=== PATIENT | female | born 1970 | race Caucasian/White ===

== ENCOUNTER 2018-03-16 13:46 | Observation (INO) ==
[2018-03-16 14:10] LABS: Basophils % 0.7 % (0.1-2.0); Eosinophils # 0.1 K/mm3 (0.0-0.4); Eosinophils % 1.5 % (0.1-12.0); Hematocrit 35.7 % (37.0-47.0); Hemoglobin 11.3 g/dL (12.2-16.2); Lymphocytes # 2.2 K/mm3 (0.7-4.5); Lymphocytes % 32.6 % (10-50); Mean Corpuscular HGB Conc 31.5 g/dL (31.8-35.4); Mean Corpuscular Hemoglobin 26.4 pg (27.0-31.2); Mean Corpuscular Volume 83.9 fl (81-99); Mean Platelet Volume 6.6 fl (7.4-10.4); Monocytes # 0.4 K/mm3 (0.1-1.0); Monocytes % 5.2 % (1.7-9.3); Platelet Count 375 K/mm3 (142-424); Red Blood Count 4.25 M/mm3 (4.20-5.40); Red Cell Distribution Width 14.1 % (11.5-17.5); White Blood Count 6.7 K/mm3 (4.8-10.8)
[2018-03-16 14:26] LABS: Anion Gap 12.8 mEq/L (5-15); Blood Urea Nitrogen 12 mg/dL (7-18); Calcium 8.2 mg/dL (8.5-10.1); Carbon Dioxide 26 mmol/L (21.0-32.0); Chloride 104 mmol/L (98-107); Glucose 176 mg/dL (74-106); Sodium 139 mmol/L (136-145)
[2018-03-16 14:28] LABS: Potassium 3.8 mmoL/L (3.5-5.1)
--- NOTE | 2018-03-16 17:04 | Emergency Department Note ---
ED Disposition Clinical Impression: Chest pain, Troponin level elevated Disposition: Admitted as Observation Condition on Discharge: Good Time of Disposition: 15:00 - Critical Care Critical Care Time: No Attestation: On 03/16/18, the high probability of a clinically significant, sudden or life threatening deterioration of the following system(s) required my full and direct attention, intervention and personal management. The time I documented below is in addition to time spent performing reported procedures but includes the following listed in this critical care notation. Medical Decision Making - Medical Records Medical records reviewed: Yes: I reviewed the patient's medical records. - Sg Inquiry Pt receiving controlled substance: No Sg was queried for this patient: No Vital Signs: 03/16/18 13:48 03/16/18 14:17 03/16/18 14:18 Temperature 98.3 F Temperature Source Oral Pulse Rate Pulse Rate [Left Radial] 66 65 63 Respiratory Rate 18 Blood Pressure Blood Pressure [Left Arm] 133/65 Blood Pressure [Right Arm] 148/83 H 125/91 H Blood Pressure Mean [Left Arm] 87 Blood Pressure Mean [Right Arm] 104 102 Blood Pressure Source Blood Pressure Source [Left Arm] Blood Pressure Source [Right Arm] Manual Cuff/ Doppler Automatic Cuff Blood Pressure Position Blood Pressure Position [Left Arm] Sitting Blood Pressure Position [Right Arm] Sitting Sitting 02 Sat by Pulse Oximetry 96 Oxygen Delivery Method Room Air 03/16/18 14:30 03/16/18 15:09 03/16/18 16:51 Temperature Temperature Source Pulse Rate Pulse Rate [Left Radial] 72 63 73 Respiratory Rate 20 16 16 Blood Pressure Blood Pressure [Left Arm] 122/66 126/69 130/69 Blood Pressure [Right Arm] 122/66 Blood Pressure Mean [Left Arm] 84 88 89 Blood Pressure Mean [Right Arm] 84 Blood Pressure Source Blood Pressure Source [Left Arm] Automatic Cuff Automatic Cuff Automatic Cuff Blood Pressure Source [Right Arm] Automatic Cuff Blood Pressure Position Blood Pressure Position [Left Arm] Sitting Supine Supine Blood Pressure Position [Right Arm] 02 Sat by Pulse Oximetry 99 100 95 Oxygen Delivery Method Room Air Room Air Room Air 03/16/18 18:42 03/16/18 19:03 Temperature 98 F Temperature Source Oral Pulse Rate 68 Pulse Rate [Left Radial] 63 Respiratory Rate 16 Blood Pressure 119/61 Blood Pressure [Left Arm] 119/71 Blood Pressure [Right Arm] Blood Pressure Mean [Left Arm] 87 Blood Pressure Mean [Right Arm] Blood Pressure Source Automatic Cuff Blood Pressure Source [Left Arm] Automatic Cuff Blood Pressure Source [Right Arm] Blood Pressure Position Sitting Blood Pressure Position [Left Arm] Sitting Blood Pressure Position [Right Arm] 02 Sat by Pulse Oximetry 99 Oxygen Delivery Method Room Air - Lab Data Lab Results 03/16/18 13:50: WBC 6.7, RBC 4.25, Hgb 11.3 L, Hct 35.7 L, MCV 83.9, MCH 26.4 L, MCHC 31.5 L, RDW 14.1, Plt Count 375, MPV 6.6 L, Neut % (Auto) 60.0, Lymph % (Auto) 32.6, [place] % (Auto) 5.2, Eos % (Auto) 1.5, Baso % (Auto) 0.7, Neut # (Auto) 4.0, Lymph # (Auto) 2.2, [place] # (Auto) 0.4, Eos # (Auto) 0.1, Baso # (Auto) 0.0 03/16/18 13:50: Sodium 139, Potassium 3.8, Chloride 104, Carbon Dioxide 26, Anion Gap 12.8, BUN 12, Creatinine 0.96, Estimated Creat Clear 81, Estimated GFR 62, Est GFR ( Amer) 75, Glucose 176 H, Calcium 8.2 L, Troponin I < 0.02 03/16/18 16:20: Troponin I 0.33 H Result diagrams: 03/17/18 05:56 03/17/18 05:56 Orders (Tests/Meds): ED MEDICATIONS Discontinued Medications Generic Name Dose Route Start Last Admin Trade Name Uzair PRN Reason Stop Dose Admin Acetaminophen 650 mg 03/16/18 18:41 03/17/18 08:03 Acetaminophen 325mg Tab PO 04/15/18 18:40 650 mg Q4HP PRN Administration As Needed for Fever or Pain Alprazolam 0.5 mg 03/17/18 07:58 03/17/18 08:03 Xanax 0.5mg Tablet PO 03/17/18 07:59 0.5 mg ONCE ONE Administration Aspirin 81 mg 03/17/18 09:00 03/18/18 08:26 Aspirin 81mg Enteric Coated Tablet PO 04/16/18 08:59 81 mg DAILY LISA Administration Atorvastatin Calcium 40 mg 03/16/18 21:00 03/17/18 20:00 Lipitor 40mg Tablet PO 04/15/18 20:59 40 mg HS LISA Administration Diphenhydramine HCl 50 mg 03/17/18 08:31 03/17/18 10:19 Benadryl 50mg/1ml Vial IV 03/17/18 08:32 50 mg ONCE ONE Administration Fentanyl Citrate 25 mcg 03/17/18 08:31 Fentanyl 100mcg/2ml Vial IV 03/18/18 08:33 Q3MINP PRN Moderate to Severe Pain Fentanyl Citrate 50 mcg 03/17/18 08:31 03/17/18 10:35 Fentanyl 100mcg/2ml Vial IV 03/18/18 08:33 75 mcg Q3MINP PRN Administration Moderate to Severe Pain Flumazenil 0.2 mg 03/17/18 08:31 Romazicon 0.1mg/Ml 5ml Vial IV 03/17/18 23:00 NEEDED PRN Sedation Heparin Sodium (Porcine) 10,000 unit 03/17/18 08:31 03/17/18 10:19 Heparin 1,000 Units/Ml 10ml Vial (Scalehouse Attendant) IV 03/17/18 12:32 5,000 unit NEEDED PRN Administration Emergency Box Butt Maker Heparin Sodium/Sodium Chloride 3,000 unit 03/17/18 08:31 03/17/18 10:21 Heparin 1000 Units/500ml Ns (Scalehouse Attendant) IV 03/17/18 08:32 3,000 unit ONCE ONE Administration Sodium Chloride 1,000 mls @ 50 mls/hr 03/16/18 18:45 03/17/18 08:11 Sod Chlor 0.9% 1000ml Bag IV 04/15/18 18:44 Not Given .Q20H LISA Sodium Chloride 1,000 mls @ 25 mls/hr 03/17/18 08:45 03/17/18 10:22 Sod Chlor 0.9% 1000ml Bag IV 03/18/18 08:32 25 mls/hr .Q25H LISA Administration Iopamidol 75 ml 03/16/18 14:59 03/16/18 15:02 [id number]; 75ml Vial IV 03/16/18 15:00 75 ml ONCE ONE Administration Protocol Iopamidol 60 ml 03/17/18 11:31 03/17/18 11:32 [id number]; 100ml Vial IV 03/17/18 11:32 60 ml ONCE ONE Administration Protocol Lidocaine HCl 20 ml 03/17/18 08:31 03/17/18 10:20 Lidocaine 1% 20ml Mdv IJ 03/17/18 08:32 5 ml ONCE ONE Administration Lisinopril 2.5 mg 03/17/18 12:00 03/18/18 08:26 Zestril 2.5mg Tablet PO 04/16/18 11:59 2.5 mg DAILY LISA Administration Metoprolol Succinate 25 mg 03/17/18 17:00 03/18/18 08:26 Toprol Xl 25mg Tablet PO 04/16/18 16:59 25 mg DAILY LISA Administration Metoprolol Tartrate 25 mg 03/16/18 17:09 03/16/18 17:22 Lopressor 50mg Tablet PO 03/16/18 17:10 25 mg ONCE ONE Administration Midazolam HCl 1 mg 03/17/18 08:31 03/17/18 10:35 Midazolam 2mg/2ml Vial IV 03/18/18 08:32 4 mg Q3MINP PRN Administration Sedation Midazolam HCl 1 mg 03/17/18 08:31 Midazolam 1mg/Ml 5ml Vial IV 03/18/18 08:32 Q3MINP PRN Sedation Morphine Sulfate 4 mg 03/16/18 14:03 03/16/18 14:17 Morphine 4mg/Ml Syringe IV 03/16/18 14:04 2 mg ONCE ONE Administration Morphine Sulfate 4 mg 03/16/18 18:41 Morphine 2mg/Ml Syringe IV 04/15/18 18:40 Q4HP PRN Severe Pain Morphine Sulfate 4 mg 03/17/18 07:56 Morphine 4mg/Ml Syringe IV 04/15/18 18:40 Q4HP PRN Severe Pain Naloxone HCl 0.4 mg 03/17/18 08:31 Narcan 0.4mg/Ml Vial IV 03/18/18 08:32 Q5MINP PRN Decreased respirations Nitroglycerin 0.4 mg 03/16/18 14:00 03/16/18 14:17 Nitroglycerin 0.4mg/Dose [place] 4.9gm TL 03/16/18 14:01 0.4 mg ONCE ONE Administration Nitroglycerin 1 gm 03/16/18 17:10 03/16/18 17:22 Nitroglycerin 1 Inch Oint Udp TD 03/16/18 17:11 1 gm ONCE ONE Administration Nitroglycerin 1 gm 03/16/18 19:30 03/18/18 08:27 Nitroglycerin 1 Inch Oint Udp TD 04/15/18 19:29 Not Given Q6H LISA Nitroglycerin 800 mcg 03/17/18 08:31 03/17/18 10:20 Nitroglycerin 800mcg/8ml Syr (Scalehouse Attendant) IV 03/18/18 08:32 800 mcg NEEDED PRN Administration Emergency Box Butt Maker Ondansetron HCl 4 mg 03/16/18 14:16 03/16/18 14:17 Zofran 4mg/2ml Vial IV 03/16/18 14:17 4 mg ONCE ONE Administration Sodium Chloride 10 ml 03/16/18 13:56 03/17/18 20:00 Saline Flush 10ml Syringe IV 04/15/18 13:55 10 ml NEEDED PRN Administration Maintain IV Site Sodium Chloride 10 ml 03/16/18 14:59 03/16/18 15:02 Rad-Saline Flush 10ml Syringe IV 03/16/18 15:00 10 ml ONCE ONE Administration Sodium Chloride 40 ml 03/16/18 14:59 03/16/18 15:02 Rad-Ns 50ml Vial IV 03/16/18 15:00 40 ml ONCE ONE Administration Sodium Chloride 10 ml 03/17/18 08:31 Saline Flush 10ml Syringe IV 04/16/18 08:30 NEEDED PRN Maintain IV Site Sodium Chloride 10 ml 03/17/18 08:31 Saline Flush 10ml Syringe IV 04/16/18 08:30 NEEDED PRN Maintain IV Site Ticagrelor 180 mg 03/16/18 17:00 03/16/18 17:09 Brilinta 90mg Tablet PO 03/16/18 17:01 180 mg ONCE ONE Administration Ticagrelor 90 mg 03/17/18 09:00 03/18/18 08:26 Brilinta 90mg Tablet PO 04/16/18 08:59 90 mg BID LISA Administration Verapamil HCl 2.5 mg 03/17/18 08:31 03/17/18 10:19 Verapamil 2.5mg/Ml 2ml Vial IV 03/17/18 08:32 2.5 mg ONCE ONE Administration ORDERS Category Date Time Status Consult to Cardiology [CONS] Routine Cons 03/16/18 18:45 Active 12-lead EKG Request [ECG Request by /Cholo] Stat Y 03/16/18 17:00 Stop Req 12-lead EKG Request [ECG Request by /Cholo] Stat Y 03/16/18 18:07 Stop Req Chest Pain HPI - General Chief Complaint: Chest Pain Stated Complaint: chest pain Time Seen by Provider: 03/16/18 13:58 Mode of Arrival: Wheelchair Limitations: No Limitations Description of Symptoms (Recalled from ER Triage Doc. 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 cpta none - History of Present Illness HPI narrative: Chest pain, acute, right chest predominantly. Severe, no back pain. MD complaint: chest pain Onset (ago): minute(s) Duration: constant Activity at onset: during rest Pain location: substernal, right chest Severity: moderate Quality: aching Pain radiation: LUE - Related Data Home Medications Medication Instructions Recorded Confirmed RX: Ascorbic Acid [Vitamin C] 500 mg PO DAILY 03/16/18 03/22/18 RX: Cyanocobalamin (Vitamin B-12) 2,500 mcg PO DAILY 03/16/18 03/22/18 [Vitamin B12 2.5mg Tab] RX: Multivitamin [Multivitamins] 1 each PO DAILY 03/16/18 03/22/18 Previous Rx's Medication Instructions Recorded Aspirin [Aspirin 81mg EC Tab] 81 mg PO DAILY #30 tablet. 03/17/18 Clopidogrel Bisulfate [Clopidogrel 75 mg PO DAILY #30 tab 03/18/18 75mg Tab] RX: Atorvastatin Calcium [Lipitor 40 mg PO HS #30 tab 03/18/18 40mg Tablet] RX: Metoprolol Succinate [Toprol 25 mg PO DAILY #30 tab.er.24h 03/18/18 XL 25mg tablet] lisinopril 2.5 mg tablet 2.5 mg PO BID #60 tab 03/22/18 Allergies Allergy/AdvReac Type Severity Reaction Status Date / Time No Known Allergies Allergy Verified 03/22/18 11:45 [facility] History - Hepatitis A Screen Drug use history?: No High risk sexual behaviors?: No History of sexually transmitted infection?: No Currently employed?: No Childcare worker?: No Do you have indoor plumbing?: Yes Do you have electricity?: Yes Attestation statement:: This patient has been screened for Hepatitis A risk factors. I have reviewed the patient's past medical history: Yes Other Medical History: Reports: Anemia Other Surgeries: Yes: No Previous Surgery - Social History Smoking Status: Never smoker Alcohol Intake: never Alcohol Intake Frequency:: holidays/special occasions only Occupational Status: employed Housing: house Household Members: family - Psychiatric History Expresses thoughts of harming self/others: None Suicide Plan Description: No Plan Family Hx:: Cancer, Hypertension, Diabetes ROS Obtained: Yes Systems reviewed as appropriate & no additional complaints - Constitutional Constitutional: Reports system reviewed and no additional complaints, except as docu, Denies fever(s), Denies malaise - Eyes Eyes: Reports system reviewed and no additional complaints, except as docu, Denies blurry vision - ENT Ears, Nose, Mouth, and Throat: Reports system reviewed and no additional complaints, except as docu, Denies throat swelling - Cardiovascular Cardiovascular: Reports system reviewed and no additional complaints, except as docu, Reports chest pain, Reports chest pain at rest, Reports dyspnea, Denies leg edema, Denies palpitations - Respiratory Respiratory: Yes system reviewed and no additional complaints, except as docu, No change in phlegm color, No chest congestion, No cough, No non-productive cough, No pain with cough - Gastrointestinal Gastrointestingal: Reports: system reviewed and no additional complaints, except as docu. Denies: coffee ground emesis - Genitourinary Male Genitourinary: Reports system reviewed and no additional complaints, except as docu - Musculoskeletal Musculoskeletal: Denies numbness, Denies stiffness, Denies tingling - Integumentary/Breasts Skin/Breast: Reports system reviewed and no additional complaints, except as docu, Denies rash - Neurologic Neurologic: Reports system reviewed and no additional complaints, except as docu, Denies tingling/numbness/burning sensations, Denies seizure-like activity, Denies sensory deficit - Hematologic/Lymphatic Henatologic/Lymphatic: Denies easy bleeding, Denies easy bruising Physical Exam - General General appearance: alert - ENT ENT exam: Present: normal exam, normal oropharynx - Neck Neck exam: Present: normal inspection - Chest Chest inspection: Present: normal inspection - Respiratory Respiratory exam: Present: normal lung sounds bilaterally - Cardiovascular Cardiovascular exam: Present: regular rate - Abdominal Exam Abdominal exam: Present: soft, normal bowel sounds. Absent: distention, tenderness, guarding - Extremities Exam Extremities exam: Present: normal inspection, full ROM, normal capillary refill. Absent: calf tenderness - Neurological Exam Neurological exam: Present: alert - Psychiatric Psychiatric exam: Present: normal affect, normal mood - Skin Skin exam: Present: warm, dry, intact, normal color - Lymphatic Lymphatic Findings: no adenopathy
--- NOTE | 2018-03-16 19:21 | History & Physical Report ---
*Admission Date: 03/16/18 *Chief complaint: Chest pressure *History of present illness: 47-year-old female without any significant medical history was in her normal state of health at work today when she experienced sudden onset of squeezing chest tightness that radiated into both shoulders and down the arms as well as through the chest and into the back. 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 These were apparently normal but when her chest pressure and tightness would not relieve she presented to the emergency department. In the emergency department workup was begun for chest pain. Initial EKG and troponin was negative. Patient was given Zofran for nausea as well as morphine which did relieve some of her chest discomfort. Ultimately chest discomfort resolved when she was given metoprolol. By that point patient had had some chest tightness of varying intensity for approximately 4 hours. Patient was observed in the emergency department and a second troponin came back abnormal (0.33). EKGs remained unremarkable for infarct or ischemia. Patient will be admitted for non-STEMI. Cardiac risk factors include a family history on her mother side of the family of heart disease. Her maternal grandmother had an VT at age 53 and her mother required coronary stenting in her early 50s. Her mother also has hyper homocystinemia. Patient tells me she has had her homocystine levels checked and they have been normal. Her last cholesterol test was 1 year ago and was "borderline". Patient is a non-smoker [facility] History I have reviewed the patient's past medical history: Yes Other Medical History: Reports: Anemia Other Surgeries: Yes: No Previous Surgery - *Social History Smoking Status: Never smoker Alcohol Intake: never Alcohol Intake Frequency:: holidays/special occasions only Occupational Status: employed Housing: house Household Members: family - Psychiatric History Expresses thoughts of harming self/others: None Suicide Plan Description: No Plan *Family Hx:: Cancer, Hypertension, Diabetes Review of Systems - Review of Systems Review of systems:: other (See HPI) - *Neurologic Denies numbness, Denies tingling/numbness/burning sensations, Denies seizure- like activity, Denies sensory deficit, Denies tingling Meds Home Medications Medication Instructions Recorded Confirmed Type No Known Home Medications 01/29/18 03/16/18 History Allergies Allergy/AdvReac Type Severity Reaction Status Date / Time No Known Allergies Allergy Unverified 01/29/18 11:38 Exam Vital signs and Labs for Last 24 Hours: Temp Pulse Resp BP Pulse Ox 98 F 68 16 119/61 99 03/16/18 19:03 03/16/18 19:03 03/16/18 19:03 03/16/18 19:03 03/16/18 18:42 Laboratory Results - last 24 hr 03/16/18 13:50: WBC 6.7, RBC 4.25, Hgb 11.3 L, Hct 35.7 L, MCV 83.9, MCH 26.4 L, MCHC 31.5 L, RDW 14.1, Plt Count 375, MPV 6.6 L, Neut % (Auto) 60.0, Lymph % (Auto) 32.6, [place] % (Auto) 5.2, Eos % (Auto) 1.5, Baso % (Auto) 0.7, Neut # (Auto) 4.0, Lymph # (Auto) 2.2, [place] # (Auto) 0.4, Eos # (Auto) 0.1, Baso # (Auto) 0.0 03/16/18 13:50: Sodium 139, Potassium 3.8, Chloride 104, Carbon Dioxide 26, Anion Gap 12.8, BUN 12, Creatinine 0.96, Estimated Creat Clear 81, Estimated GFR 62, Est GFR ( Amer) 75, Glucose 176 H, Calcium 8.2 L, Troponin I < 0.02 03/16/18 16:20: Troponin I 0.33 H I & O for Last 24 hours: Intake & Output 03/14/18 03/15/18 03/16/18 03/17/18 11:59 11:59 11:59 11:59 Weight 160 lb Narrative: Patient is resting comfortably in bed. She is in no distress. She does not appear diaphoretic. HEENT exam is normal. Neck has no jugular venous distention or carotid bruits. Lungs are clear to auscultation. Heart has a regular rate and rhythm. Abdomen is soft, nontender, nondistended. Extremities are warm to the touch. She has no pedal edema. Neurologically there is no deficit Assessment and Plan (1) Non-ST elevation [place] (NSTEMI) Current visit: Yes Status: Acute Category: Medical Code(s): I21.4 - Non-ST elevation (NSTEMI) myocardial infarction - Assessment and plan all Dx Assessment and Plan for all problems:: Patient has been admitted for observation to a telemetry bed. She has been given aspirin and a loading dose of Brilinta. Patient will be given a statin. Lipid panel will be checked in the morning. A third troponin has been ordered for this evening. Cardiology has been consulted and Dr. Ortega has already been made aware of this patient by the ER
[2018-03-17 06:15] LABS: Basophils % 0.6 % (0.1-2.0); Eosinophils # 0.1 K/mm3 (0.0-0.4); Hematocrit 36.1 % (37.0-47.0); Hemoglobin 11.6 g/dL (12.2-16.2); Lymphocytes # 1.6 K/mm3 (0.7-4.5); Lymphocytes % 21.6 % (10-50); Mean Corpuscular Hemoglobin 26.1 pg (27.0-31.2); Mean Corpuscular Volume 81.6 fl (81-99); Mean Platelet Volume 6.5 fl (7.4-10.4); Monocytes # 0.4 K/mm3 (0.1-1.0); Monocytes % 5.5 % (1.7-9.3); Neutrophils # 5.5 K/mm3 (1.8-7.8); Neutrophils % 71.4 % (37.0-80.0); Platelet Count 348 K/mm3 (142-424); Red Blood Count 4.42 M/mm3 (4.20-5.40); White Blood Count 7.6 K/mm3 (4.8-10.8)
[2018-03-17 06:22] LABS: Anion Gap 13.8 mEq/L (5-15); Calcium 8.3 mg/dL (8.5-10.1); Potassium 3.8 mmoL/L (3.5-5.1)
[2018-03-17 06:25] LABS: Chol/HDL Ratio 2.1 (1-3.5)
--- NOTE | 2018-03-17 07:05 | Progress Note ---
Internal Medicine - PN: Subj *Date: 03/17/18 *Time: 07:03 Interval history: Patient has no complaints this morning. She still has some left-sided periscapular pain which has not ceased since onset of symptoms yesterday. All other symptoms of chest pressure that radiated into the shoulder have resolved. She denies shortness of breath. Her troponin did rise even more on a third set checked yesterday evening. Exam Vital signs and Labs for Last 24 Hours: Temp Pulse Resp BP Pulse Ox 98.4 F 62 18 114/57 L 97 03/17/18 04:00 03/17/18 04:00 03/17/18 04:00 03/17/18 04:00 03/17/18 04:00 Laboratory Results - last 24 hr 03/16/18 13:50: WBC 6.7, RBC 4.25, Hgb 11.3 L, Hct 35.7 L, MCV 83.9, MCH 26.4 L, MCHC 31.5 L, RDW 14.1, Plt Count 375, MPV 6.6 L, Neut % (Auto) 60.0, Lymph % (Auto) 32.6, [place] % (Auto) 5.2, Eos % (Auto) 1.5, Baso % (Auto) 0.7, Neut # (Auto) 4.0, Lymph # (Auto) 2.2, [place] # (Auto) 0.4, Eos # (Auto) 0.1, Baso # (Auto) 0.0 03/16/18 13:50: Sodium 139, Potassium 3.8, Chloride 104, Carbon Dioxide 26, Anion Gap 12.8, BUN 12, Creatinine 0.96, Estimated Creat Clear 81, Estimated GFR 62, Est GFR ( Amer) 75, Glucose 176 H, Calcium 8.2 L, Troponin I < 0.02 03/16/18 16:20: Troponin I 0.33 H 03/16/18 21:18: Troponin I 4.98 H 03/17/18 05:56: Triglycerides 45, Cholesterol 162, LDL Cholesterol 75, VLDL Cholesterol 9, HDL Cholesterol 78, Cholesterol/HDL Ratio 2.1 03/17/18 05:56: WBC 7.6, RBC 4.42, Hgb 11.6 L, Hct 36.1 L, MCV 81.6, MCH 26.1 L, MCHC 32.0, RDW 14.0, Plt Count 348, MPV 6.5 L, Neut % (Auto) 71.4, Lymph % (Auto) 21.6, [place] % (Auto) 5.5, Eos % (Auto) 1.0, Baso % (Auto) 0.6, Neut # (Auto) 5.5, Lymph # (Auto) 1.6, [place] # (Auto) 0.4, Eos # (Auto) 0.1, Baso # (Auto) 0.0 03/17/18 05:56: Sodium 139, Potassium 3.8, Chloride 103, Carbon Dioxide 26, Anion Gap 13.8, BUN 11, Creatinine 0.87, Estimated Creat Clear 111, Estimated GFR 69, Est GFR ( Amer) 84, Glucose 103 D, Calcium 8.3 L I & O for Last 24 hours: Intake & Output 03/14/18 03/15/18 03/16/18 03/17/18 11:59 11:59 11:59 11:59 Intake Total Balance Weight 197 lb 5 oz - Constitutional no acute distress - *Routine Respiratory Exam Present: CTA bilaterally - *Routine Cardiovascular Exam Present: RRR, Normal S1, Normal S2 Assessment and Plan (1) Non-ST elevation [place] (NSTEMI) Current visit: Yes Status: Acute Category: Medical Code(s): I21.4 - Non-ST elevation (NSTEMI) myocardial infarction - Assessment and plan all Dx Assessment and Plan for all problems:: 1. Echocardiogram today 2. Cardiology consult for heart catheterization
--- NOTE | 2018-03-17 07:06 | Discharge Summary ---
General - General Admission date:: 03/16/18 Discharge date: 03/18/18 HPI HPI: 47-year-old female without any significant medical history was in her normal state of health at work today when she experienced sudden onset of squeezing chest tightness that radiated into both shoulders and down the arms as well as through the chest and into the back. 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 These were apparently normal but when her chest pressure and tightness would not relieve she presented to the emergency department. In the emergency department workup was begun for chest pain. Initial EKG and troponin was negative. Patient was given Zofran for nausea as well as morphine which did relieve some of her chest discomfort. Ultimately chest discomfort resolved when she was given metoprolol. By that point patient had had some chest tightness of varying intensity for approximately 4 hours. Patient was observed in the emergency department and a second troponin came back abnormal (0.33). EKGs remained unremarkable for infarct or ischemia. Patient will be admitted for non-STEMI. Cardiac risk factors include a family history on her mother side of the family of heart disease. Her maternal grandmother had an IL at age 53 and her mother required coronary stenting in her early 50s. Her mother also has hyper homocystinemia. Patient tells me she has had her homocystine levels checked and they have been normal. Her last cholesterol test was 1 year ago and was "borderline". Patient is a non-smoker Hospital Course Hospital Course: Patient ruled in for IL. Cardiology was consulted. On 03/17 patient underwent LHC with findings of occluded mid PDA. EF was 40% via BYNUM and 40-50% on echo. Patient will need ASA,Plavix, atorvastatin, metroprolol er, lisinopril. Patient was monitored post-cath and had no arrhythmias. She was discharged to home on 03/18. follow up with Dr. Ortega on 03/22/18. Objective Vital signs: Temp Pulse Resp BP Pulse Ox 98.4 F 62 18 114/57 L 97 03/17/18 04:00 03/17/18 04:00 03/17/18 04:00 03/17/18 04:00 03/17/18 04:00 Results Labs on day of discharge: Labs from last 24 hours 03/17/18 03/17/18 03/17/18 05:56 05:56 05:56 WBC 7.6 RBC 4.42 Hgb 11.6 L Hct 36.1 L MCV 81.6 MCH 26.1 L MCHC 32.0 RDW 14.0 Plt Count 348 MPV 6.5 L Neut % (Auto) 71.4 Lymph % (Auto) 21.6 [place] % (Auto) 5.5 Eos % (Auto) 1.0 Baso % (Auto) 0.6 Neut # (Auto) 5.5 Lymph # (Auto) 1.6 [place] # (Auto) 0.4 Eos # (Auto) 0.1 Baso # (Auto) 0.0 Sodium 139 Potassium 3.8 Chloride 103 Carbon Dioxide 26 Anion Gap 13.8 BUN 11 Creatinine 0.87 Estimated Creat Clear 111 Estimated GFR 69 Est GFR ( Amer) 84 Glucose 103 D Calcium 8.3 L Troponin I Triglycerides 45 Cholesterol 162 LDL Cholesterol 75 VLDL Cholesterol 9 HDL Cholesterol 78 Cholesterol/HDL Ratio 2.1 03/16/18 03/16/18 03/16/18 21:18 16:20 13:50 WBC RBC Hgb Hct MCV MCH MCHC RDW Plt Count MPV Neut % (Auto) Lymph % (Auto) [place] % (Auto) Eos % (Auto) Baso % (Auto) Neut # (Auto) Lymph # (Auto) [place] # (Auto) Eos # (Auto) Baso # (Auto) Sodium 139 Potassium 3.8 Chloride 104 Carbon Dioxide 26 Anion Gap 12.8 BUN 12 Creatinine 0.96 Estimated Creat Clear 81 Estimated GFR 62 Est GFR ( Amer) 75 Glucose 176 H Calcium 8.2 L Troponin I 4.98 H 0.33 H < 0.02 Triglycerides Cholesterol LDL Cholesterol VLDL Cholesterol HDL Cholesterol Cholesterol/HDL Ratio 03/16/18 13:50 WBC 6.7 RBC 4.25 Hgb 11.3 L Hct 35.7 L MCV 83.9 MCH 26.4 L MCHC 31.5 L RDW 14.1 Plt Count 375 MPV 6.6 L Neut % (Auto) 60.0 Lymph % (Auto) 32.6 [place] % (Auto) 5.2 Eos % (Auto) 1.5 Baso % (Auto) 0.7 Neut # (Auto) 4.0 Lymph # (Auto) 2.2 [place] # (Auto) 0.4 Eos # (Auto) 0.1 Baso # (Auto) 0.0 Sodium Potassium Chloride Carbon Dioxide Anion Gap BUN Creatinine Estimated Creat Clear Estimated GFR Est GFR ( Amer) Glucose Calcium Troponin I Triglycerides Cholesterol LDL Cholesterol VLDL Cholesterol HDL Cholesterol Cholesterol/HDL Ratio DS: Diagnosis - Discharge Diagnosis (1) Non-ST elevation IL (NSTEMI) Status: Acute Discharge Plan - Patient Discharge Instructions ACTIVITY: Continue current activity DIET: continue same diet - Follow up Plan Follow up with: Magno Ortega MD [Staff Physician] - Disposition: Home, Self-Long-Term Medications: Home Medications Medication Instructions Recorded Confirmed Type Ascorbic Acid [Vitamin C] 500 mg PO DAILY 03/16/18 03/16/18 History Cyanocobalamin (Vitamin B-12) 2,500 mcg PO DAILY 03/16/18 03/16/18 History [Vitamin B12 2.5mg Tab] Multivitamin [Multivitamins] 1 each PO DAILY 03/16/18 03/16/18 History Aspirin [Aspirin 81mg EC Tab] 81 mg PO DAILY #30 tablet. 03/17/18 Rx Atorvastatin Calcium [Lipitor 40mg 40 mg PO HS #30 tablet 03/18/18 Rx Tablet] Clopidogrel Bisulfate [Clopidogrel 75 mg PO DAILY #30 tab 03/18/18 Rx 75mg Tab] Lisinopril [Zestril 2.5mg Tablet] 2.5 mg PO DAILY #30 tablet 03/18/18 Rx Metoprolol Succinate [Toprol XL 25 mg PO DAILY #30 tab.er.24h 03/18/18 Rx 25mg tablet] Prescriptions/Medication Reconciliation: New Aspirin [Aspirin 81mg EC Tab] 81 mg PO DAILY #30 tablet. Atorvastatin Calcium [Lipitor 40mg Tablet] 40 mg PO HS #30 tablet Clopidogrel Bisulfate [Clopidogrel 75mg Tab] 75 mg PO DAILY #30 tab Metoprolol Succinate [Toprol XL 25mg tablet] 25 mg PO DAILY #30 tab.er.24h Lisinopril [Zestril 2.5mg Tablet] 2.5 mg PO DAILY #30 tablet No Action Cyanocobalamin (Vitamin B-12) [Vitamin B12 2.5mg Tab] 2,500 mcg PO DAILY Ascorbic Acid [Vitamin C] 500 mg PO DAILY Multivitamin [Multivitamins] 1 each PO DAILY
--- NOTE | 2018-03-17 07:37 | Consult Report ---
History of Present Illness Consult date: 03/17/18 Requesting physician: Ethan Funk Consult reason: chest pain Chief complaint: Chest pain Additional Medical History:: 1. Chronic anemia, no previous workup at patient's request. A. Treated with home vitamin therapy. 2. History of remote gastric bypass with >200 lb wt loss A. Post-op gastric ulcer treated with carafate 3. Mother with history of CAD and homocystiene (+) with IVC filter and coumadin therapy A. Pt and siblings tested. Pt is normal. History of present illness: 47-year-old female without any significant medical history was in her normal state of health at work today when she experienced sudden onset of squeezing chest tightness that radiated into both shoulders and down the arms as well as through the chest and into the back. 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 These were apparently normal but when her chest pressure and tightness would not relieve she presented to the emergency department. In the emergency department workup was begun for chest pain. Initial EKG and troponin was negative. Patient was given Zofran for nausea as well as morphine which did relieve some of her chest discomfort. Ultimately chest discomfort resolved when she was given metoprolol. By that point patient had had some chest tightness of varying intensity for approximately 4 hours. Patient was observed in the emergency department and a second troponin came back abnormal (0.33). EKGs remained unremarkable for infarct or ischemia. Patient will be admitted for non-STEMI. Cardiac risk factors include a family history on her mother side of the family of heart disease. Her maternal grandmother had an ND at age 53 and her mother required coronary stenting in her early 50s. Her mother also has hyper homocy stinemia. Patient tells me she has had her homocystine levels checked and they have been normal. Her last cholesterol test was 1 year ago and was "borderline". Patient is a non-smoker The above per Dr. Funk In hind sight patient relates the same back pain with activity off and on for about a month that would resolve with rest and only last for about 10 min. EKG is sinus with persistent questionable early repolarization changes inferiorly. Troponin up to 4.9 last night. Clinically symptoms have resolved. [facility] History Medical History: Denies:: Cancer, Diabetes Mellitus Type 1, Diabetes Mellitus Type 2, MRSA Other Medical History: Reports: Anemia Other Surgeries: Yes: No Previous Surgery, Bariatric Surgery, Cholecystectomy, Tubal Ligation, Other Amputation: No Fractures: No - *Social History Educational Level: Completed College Smoking Status: Never smoker Alcohol Intake: never Alcohol Intake Frequency:: holidays/special occasions only Occupational Status: employed Housing: house Household Members: family - Psychiatric History Expresses thoughts of harming self/others: None Suicide Plan Description: No Plan *Family Hx:: Cancer, Hypertension, Diabetes Meds Home Medications Medication Instructions Recorded Confirmed Type Ascorbic Acid [Vitamin C] 500 mg PO DAILY 03/16/18 03/16/18 History Cyanocobalamin (Vitamin B-12) 2,500 mcg PO DAILY 03/16/18 03/16/18 History [Vitamin B12 2.5mg Tab] Multivitamin [Multivitamins] 1 each PO DAILY 03/16/18 03/16/18 History Aspirin [Aspirin 81mg EC Tab] 81 mg PO DAILY #30 tablet. 03/17/18 Rx Allergies Allergy/AdvReac Type Severity Reaction Status Date / Time No Known Allergies Allergy Unverified 01/29/18 11:38 Review of Systems - *Cardiovascular Reports chest pain, Denies shortness of breath with activity - *Respiratory Denies shortness of breath - *Gastrointestinal Denies abdominal pain - *Genitourinary Denies blood in urine - *Musculoskeletal Reports back pain - *Neurologic Denies numbness, Denies tingling/numbness/burning sensations, Denies seizure- like activity, Denies sensory deficit, Denies tingling Exam Vital signs and Labs for Last 24 Hours: Temp Pulse Resp BP Pulse Ox 98.4 F 62 18 114/57 L 97 03/17/18 04:00 03/17/18 04:00 03/17/18 04:00 03/17/18 04:00 03/17/18 04:00 Laboratory Results - last 24 hr 03/16/18 13:50: WBC 6.7, RBC 4.25, Hgb 11.3 L, Hct 35.7 L, MCV 83.9, MCH 26.4 L, MCHC 31.5 L, RDW 14.1, Plt Count 375, MPV 6.6 L, Neut % (Auto) 60.0, Lymph % (Auto) 32.6, [place] % (Auto) 5.2, Eos % (Auto) 1.5, Baso % (Auto) 0.7, Neut # (Auto) 4.0, Lymph # (Auto) 2.2, [place] # (Auto) 0.4, Eos # (Auto) 0.1, Baso # (Auto) 0.0 03/16/18 13:50: Sodium 139, Potassium 3.8, Chloride 104, Carbon Dioxide 26, Anion Gap 12.8, BUN 12, Creatinine 0.96, Estimated Creat Clear 81, Estimated GFR 62, Est GFR ( Amer) 75, Glucose 176 H, Calcium 8.2 L, Troponin I < 0.02 03/16/18 16:20: Troponin I 0.33 H 03/16/18 21:18: Troponin I 4.98 H 03/17/18 05:56: Triglycerides 45, Cholesterol 162, LDL Cholesterol 75, VLDL Cholesterol 9, HDL Cholesterol 78, Cholesterol/HDL Ratio 2.1 03/17/18 05:56: WBC 7.6, RBC 4.42, Hgb 11.6 L, Hct 36.1 L, MCV 81.6, MCH 26.1 L, MCHC 32.0, RDW 14.0, Plt Count 348, MPV 6.5 L, Neut % (Auto) 71.4, Lymph % (Auto) 21.6, [place] % (Auto) 5.5, Eos % (Auto) 1.0, Baso % (Auto) 0.6, Neut # (Auto) 5.5, Lymph # (Auto) 1.6, [place] # (Auto) 0.4, Eos # (Auto) 0.1, Baso # (Auto) 0.0 03/17/18 05:56: Sodium 139, Potassium 3.8, Chloride 103, Carbon Dioxide 26, Anion Gap 13.8, BUN 11, Creatinine 0.87, Estimated Creat Clear 111, Estimated GFR 69, Est GFR ( Amer) 84, Glucose 103 D, Calcium 8.3 L I & O for Last 24 hours: Intake & Output 03/14/18 03/15/18 03/16/18 03/17/18 11:59 11:59 11:59 11:59 Intake Total Balance Weight 197 lb 5 oz - *Routine Neck Exam Present: supple. Absent: JVD, carotid bruit - *Routine Respiratory Exam Present: CTA bilaterally. Absent: accessory muscle use, rales, rhonchi, wheezes - *Routine Cardiovascular Exam Present: RRR. Absent: murmur, gallop, rubs - *Routine Abdominal Exam Present: soft. Absent: tenderness, distended, guarding - *Routine Extremities Exam Absent: edema, calf tenderness - *Routine Neurological Exam Present: alert, oriented X3, moving all extremities Assessment and Plan (1) Non-ST elevation ND (NSTEMI) Current visit: Yes Status: Acute Category: Medical Code(s): I21.4 - Non-ST elevation (NSTEMI) myocardial infarction (2) Anemia Current visit: Yes Status: Acute Category: Medical Code(s): D64.9 - Anemia, unspecified (3) Chest pain Current visit: Yes Status: Acute Category: Medical Code(s): R07.9 - Chest pain, unspecified (4) Nonsustained ventricular tachycardia Current visit: Yes Status: Acute Category: Medical Code(s): I47.2 - Ventricular tachycardia - Assessment and plan all Dx Assessment and Plan for all problems:: 1. Cardiac cath today for NSTEMI 2. Echo ordered with preliminary results showing preserved EF with apical thinning. 3. Start low dose JADON and beta trixie in setting of NSTEMI and V. Tach. Continue statin, ASA and brilinta. 4. Further recommendations to follow.
--- NOTE | 2018-03-17 07:47 | Pharmacy Consult Notes ---
[facility] Pharmacy VTE Monitoring - Patient Demographics Admission date: 03/16/18 Report Date: 03/17/18 Time: 07:47 Allergies/Adverse Reactions: Patient Allergies No Known Allergies Allergy (Unverified 01/29/18 11:38) Height: 1.71 m Weight: 89.499 kg Patient Problems: Current Active Problems Chest pain (Acute) Troponin level elevated (Acute) Non-ST elevation MT (NSTEMI) (Acute) - VTE Risk Labs: VTE Related Lab Results Hgb 11.6 g/dL (12.2-16.2) L 03/17/18 05:56 Hct 36.1 % (37.0-47.0) L 03/17/18 05:56 Plt Count 348 K/mm3 (142-424) 03/17/18 05:56 BUN 11 mg/dL (7-18) 03/17/18 05:56 Creatinine 0.87 mg/dL (0.55-1.02) 03/17/18 05:56 Estimated Creat Clear 111 mL/min (50-200) 03/17/18 05:56 Was VTE Risk Assessment Performed: Yes VTE Risk Level: Very Low Risk - Prophylaxis VTE Prophylaxis Ordered?: Yes Types of VTE Prophylaxis: TEDS Knee High Location of Applied Device: Bilateral Lower Extremeties - VTE Diagnosis Confirmed Treatment or plan recommended: Continue Current Treatment
== END 2018-03-18 09:57 | disposition home or self-care (01) ==
LOC: 2ND 13:46 → ER 13:46 → 2ND 19:05
PROVIDERS: ADMIT Family Medicine; ATTEND Family Medicine
CPT/HCPCS: 36415; 71275; 80048; 80061; 84484; 85025; 93005; 93306; 93458; 96374; 96375; 99152; 99285; C1725; C1769; G0378; J1644; J2405; Q9967

== ENCOUNTER → 2018-06-09 16:27 | Outpatient (CLI) | payer OTHER, SELFPAY ==
--- NOTE | 2018-06-09 | XR_ITS ---
EXAM: XR cervical spine 5V HISTORY: Neck pain and left shoulder pain ITS.REASON: CERVICAL RADICULOPATHY ORDERING PHYSICIAN: Felix Ross MD PATIENT AGE: 47 years COMPARISON: None FINDINGS: Normal alignment. There is mild degenerative disc disease at C5-C6 and C6-C7 with decrease in disc space and anterior osteophytes. Foramina are well-preserved. No lytic or blastic change. No cervical rib IMPRESSION: Degenerative disc disease C5-C6 and C6-C7
== END ==
PROVIDERS: PCP Family Medicine; Visit Provider Family Medicine
DX: M54.2 Cervicalgia (principal)
CPT/HCPCS: 72050

== ENCOUNTER → 2018-07-12 09:23 | Outpatient (CLI) | payer OTHER, SELFPAY ==
[2018-07-12 13:07] LABS: Alanine Aminotransferase 38 U/L (12-78); Albumin Level 3.6 gm/dL (3.4-5.0); Albumin/Globulin Ratio 1.3 (1.1-1.8); Alkaline Phosphatase 38 U/L (46-116); Anion Gap 11.2 mEq/L (5-15); Aspartate Amino Transferase 30 U/L (15-37); Bilirubin,Total 0.4 mg/dL (0.2-1.0); Blood Urea Nitrogen 11 mg/dL (7-18); Calcium 8.4 mg/dL (8.5-10.1); Carbon Dioxide 27 mmol/L (21.0-32.0); Chloride 103 mmol/L (98-107); Chol/HDL Ratio 1.8 (1-3.5); Cholesterol 129 mg/dL (140-200); Creatinine,Serum 0.81 mg/dL (0.55-1.02); Estimated Glomerular Filt Rate 75 ml/min (>60); GFR (African American) 91 ML/MIN (>60); Globulin 2.8 gm/dl (1.3-3.2); Glucose 82 mg/dL (74-106); HDL Cholesterol 72 mg/dL (29-89); LDL Cholesterol 46 mg/dL (0-130); Potassium 4.2 mmoL/L (3.5-5.1); Sodium 137 mmol/L (136-145); Total Protein,Serum 6.4 gm/dL (6.4-8.2); Triglycerides 54 mg/dL (30-200); VLDL Cholesterol 11 mg/dL (0-40)
== END ==
PROVIDERS: Visit Provider Family Medicine
DX: E78.5 Hyperlipidemia, unspecified (principal)
CPT/HCPCS: 36415; 80053; 80061

== ENCOUNTER → 2018-08-07 08:37 | Outpatient (CLI) | payer OTHER, SELFPAY ==
--- NOTE | 2018-08-07 08:41 | MR_ITS ---
MR cervical spine wo con, MR 3-d myelogram/MRCP HISTORY: LT shoulder and arm pain to forearm. Tingling and numbness in fingers. No trauma ITS.REASON: CERVICAL RADICULOPATHY ORDERING PHYSICIAN: Felix Ross MD PATIENT AGE: 47 years Comparison: X-RAY 06-09-18 TECHNIQUE: Standard multiplanar multiecho sequences are performed without contrast. 3-D MIP and myelographic images are also rendered and reviewed FINDINGS: Normal alignment. Craniocervical junction is unremarkable. C2-C3: Unremarkable. C3 C: Unremarkable. C4-C5: Unremarkable. C5-C6: Mild degenerative disc disease with minimal bulging disc with narrowing of the canal at 10 mm . No cord compression or flattening. C6-C7: There is mild bulging disc with mild degenerative disc disease. There is a small left paracentral/foraminal disc protrusion causing left-sided foraminal narrowing. C7-T1: Unremarkable. IMPRESSION: 1. Mild degenerative disc disease with mild bulging disc with small left paracentral disc/foraminal disc protrusion at C6-C7 2. Mild degenerative disc disease with minimal bulging disc and narrowing of the canal at C5-C6
== END ==
PROVIDERS: PCP Family Medicine; Visit Provider Family Medicine
DX: M54.12 Radiculopathy, cervical region (principal)
CPT/HCPCS: 72141; 76376

== ENCOUNTER → 2018-08-18 07:47 | Outpatient (CLI) | payer OTHER, SELFPAY ==
--- NOTE | 2018-08-18 07:49 | CA_ITS ---
PROCEDURE: 2-D M-mode and color Doppler study INDICATIONS FOR THE TEST: Chest pain COPD Heart Murmur Tobacco Smoking Palpitations Fatigue Syncope Edema Hypertension+Diabetes Mellitus Rheumatic Fever SOB MAURICIO Obesity Hyperlipidemia+ Family History HD Additional History CAD, MT EF 40% 03/07, BREAST IMPLANTS PATIENT INFORMATION HEIGHT: 67 WEIGHT:164 GENDER: Female B/P: 2-D/M-MODE INTERPRETATION: 2-D MEASUREMENTS OBSERVED VALUES IN CMS Right Ventricular Dimension (RVDd) 2.3 Interventricular Septum (Thickness)(IVsd) 0.8 Left Ventricular Internal Dimensions(LVIDd) 5.7 Left Ventricular Posterior Wall (Thickness)(LVPWd) 0.8 Aortic Root 2.9 Aortic Cusp Separation 1.8 Left Atrial Dimensions (LAD) 3.5 2D 1. Left atrium is mildly enlarged, left ventricle is normal size, mild concentric left ventricular hypertrophy, visually estimated ejection fraction 45-50% with no regional wall motion abnormality. 2. The right atrium and right ventricle are normal size and contractility. 3. The aortic valve is minimally thickened and fibrosed. 4. The mitral and tricuspid valve leaflets are minimally thickened. 5. The pulmonic valve is poorly present. 6. No significant pericardial effusion noted. DOPPLER INTERROGATION: Doppler interrogation of the aortic, mitral and tricuspid valvular presence of mild mitral and tricuspid regurgitation, tricuspid regurgitation jet velocity is inadequate for calculation of the right ventricular systolic pressure, diastolic parameters are inconclusive, inferior vena cava is normal size with normal respiratory collapse. CONCLUSION: 1. Mildly enlarged left atrium, normal left ventricular size, mild concentric left ventricular hypertrophy, visually estimated ejection fraction of 45-50% with no regional wall motion abnormality, diastolic parameters are inconclusive. 2. Mild mitral and tricuspid regurgitation 3. No significant pericardial effusion noted.
== END ==
PROVIDERS: PCP Family Medicine; Visit Provider Urology
DX: I25.10 Atherosclerotic heart disease of native coronary artery without angina pectoris (principal); I51.9 Heart disease, unspecified
CPT/HCPCS: 93306

== ENCOUNTER 2018-10-16 17:00 | Outpatient (RCR) | payer OTHER, SELFPAY | END 2018-10-31 11:02 | disposition home or self-care (01) | LOC: PT.CARL 17:00 | PROVIDERS: Visit Provider Neurological Surgery | DX: M54.2 Cervicalgia (principal); M50.30 Other cervical disc degeneration, unspecified cervical region; M50.20 Other cervical disc displacement, unspecified cervical region | CPT/HCPCS: 97010; 97012; 97110; 97140; 97163 ==

== ENCOUNTER 2019-04-17 09:20 | Inpatient (IN) ==
--- NOTE | 2019-04-17 09:47 | Emergency Department Note ---
[facility] [place] Clinical Impression: Anemia Qualifiers: Anemia type: unspecified type Qualified Code(s): D64.9 - Anemia, unspecified Fatigue Qualifiers: Fatigue type: unspecified Qualified Code(s): R53.83 - Other fatigue Disposition: Still a Patient Condition on Discharge: Fair Referrals: Felix Ross MD [Primary Care Provider] - Time of Disposition: 10:49 Medical Decision Making - Medical Records Medical records reviewed: No: I reviewed the patient's medical records. - Sg Inquiry Pt receiving controlled substance: No Vital Signs: 04/17/19 09:30 Temperature 97.8 F Temperature Source Oral Pulse Rate [Right Brachial] 81 Respiratory Rate 21 Blood Pressure [Right Arm] 98/65 L Blood Pressure Mean [Right Arm] 76 Blood Pressure Source [Right Arm] Automatic Cuff Blood Pressure Position [Right Arm] Sitting 02 Sat by Pulse Oximetry 100 Oxygen Delivery Method Room Air - Lab Data Lab results reviewed: Yes: I reviewed the patient's lab results. Lab Results 04/17/19 10:00: WBC 9.0, RBC 3.37 L, Hgb 6.8 L*, Hct 24.0 L, MCV 71.3 L, MCH 20.3 L, MCHC 28.5 L, RDW 18.4 H, Plt Count 388, MPV 7.5, Neut % (Auto) 81.8 H, Lymph % (Auto) 14.3, [place] % (Auto) 3.1, Eos % (Auto) 0.3, Baso % (Auto) 0.6, Neut # (Auto) 7.3, Lymph # (Auto) 1.3, [place] # (Auto) 0.3, Eos # (Auto) 0.0, Baso # (Auto) 0.1 Result diagrams: 04/17/19 10:00 Orders (Tests/Meds): ORDERS Category Date Time Status CMP [Comprehensive Metabolic Panel] Stat Lab 04/17/19 10:00 Received Free T4 (Free Thyroxine) Stat Lab 04/17/19 10:00 Received Thyroid Stimulating Hormone Stat Lab 04/17/19 10:00 [place] [facility] [place] - General Stated complaint: SOA Time Seen by Provider: 04/17/19 09:47 Mode of Arrival: Family Vehicle Source of Information: Patient Limitations: No Limitations Description of Symptoms (Recalled from Triage Doc. by RN): C/O SOB HEENT Symptoms (Recalled from RN notes): Yes Resp Symptoms (Recalled from RN notes): Yes Skin Symptoms (Recalled from RN notes): No MS Symptoms (Recalled from RN notes): No Functional Status (Recalled from RN notes): N/A - History of Present Illness Provider Complaint: She c/o worsening fatigue and mild shortness of breath that has been developing over the past 1 to 2 weeks. She is worried that she may be anemic. She has a history of having gastric bypass surgery (early ) and subsequent ulcers that resulted in her becoming anemic in the past. She also reports that she has had some dark stools off and on over the past 1 month ap prox. She denies any chest pain. She did have an WA in 2018. She is followed by Dr. Ortega for cardiology. She has an appointment with him later today, if her h/h comes back ok here. - Related Data Home Medications Medication Instructions Recorded Confirmed Ascorbic Acid [Vitamin C] 500 mg PO DAILY 03/16/18 10/11/18 Cyanocobalamin (Vitamin B-12) 2,500 mcg PO DAILY 03/16/18 10/11/18 [Vitamin B12 2.5mg Tab] Multivitamin [Multivitamins] 1 each PO DAILY 03/16/18 10/11/18 gabapentin 300 mg capsule 300 mg PO QHS 10/11/18 10/11/18 Previous Rx's Medication Instructions Recorded Aspirin [Aspirin 81mg EC Tab] 81 mg PO DAILY #30 tablet. 03/17/18 atorvastatin 40 mg tablet 40 mg PO DAILY #90 tab 07/20/18 clopidogrel 75 mg tablet 75 mg PO DAILY #90 tab 07/20/18 lisinopril 2.5 mg tablet 2.5 mg PO DAILY #90 tab 07/20/18 metoprolol succinate 25 mg 25 mg PO DAILY #90 tab 07/20/18 tablet,extended release 24 hr Allergies Allergy/AdvReac Type Severity Reaction Status Date / Time No Known Allergies Allergy Verified 10/11/18 08:50 - Worker's Comp Is this a Worker's Comp case?: No [facility] History - Hepatitis A Screen Drug use history?: No High risk sexual behaviors?: No History of sexually transmitted infection?: No Currently employed?: No Childcare worker?: No Do you have indoor plumbing?: Yes Do you have electricity?: Yes Attestation statement:: This patient has been screened for Hepatitis A risk factors. I have reviewed the patient's past medical history: Yes Medical History: Reports:: Coronary Artery Disease, Hyperlipidemia, Hypertension Denies:: Cancer, Diabetes Mellitus Type 1, Diabetes Mellitus Type 2, MRSA Other Medical History: Reports: Anemia Other Surgeries: Yes: No Previous Surgery, Bariatric Surgery, Cardiac Catheterization, Cholecystectomy, , Tubal Ligation, Other Amputation: No Fractures: No - Social History Smoking Status: Never smoker Alcohol Intake: never Alcohol Intake Frequency:: holidays/special occasions only Substance Use Type: denies use Occupational Status: employed Housing: house Household Members: family Family Hx:: Cancer, Hypertension, Diabetes, Coronary Artery Disease, Heart Attack Comment: Maternal Grandmother- of [place] at 54. Mother-CAD with stents around 48. Father-HTN ROS Obtained: Yes All systems reviewed & no additional complaints - Constitutional Constitutional: Denies chills, Reports fatigue, Denies fever(s) - Eyes Eyes: Denies eye discharge - ENT Ears, Nose, Mouth, and Throat: Denies sore throat - Cardiovascular Cardiovascular: Denies chest pain - Respiratory Respiratory: No chest congestion, No cough, Yes dyspnea on exertion, No coughing up blood, No stridor, No wheezing - Gastrointestinal Gastrointestingal: Reports: as per HPI Physical Exam - General General appearance: alert, in no apparent distress - Head Head exam: atraumatic, normocephalic, normal inspection - Eye Eye exam: Present: normal appearance, PERRL, EOMI - ENT ENT exam: Present: normal exam, normal oropharynx, mucous membranes moist, TM's normal bilaterally, normal external ear exam - Neck Neck exam: Present: normal inspection, full ROM, trachea midline. Absent: meningismus, lymphadenopathy - Chest Chest inspection: Present: normal inspection, symmetric chest wall rise. Absent: tenderness - Respiratory Respiratory exam: Present: normal lung sounds bilaterally. Absent: respiratory distress - Cardiovascular Cardiovascular exam: Present: regular rate, normal rhythm. Absent: JVD - Abdominal Exam Abdominal exam: Present: soft, normal bowel sounds. Absent: distention, tenderness, guarding - Extremities Exam Extremities exam: Present: normal inspection, full ROM, normal capillary refill. Absent: calf tenderness - Back Exam Back exam: Present: normal inspection. Absent: tenderness - Neurological Exam Neurological exam: Present: alert, oriented X3 - Psychiatric Psychiatric exam: Present: normal affect, normal mood - Skin Skin exam: Present: warm, dry, intact, normal color - Lymphatic Lymphatic Findings: no adenopathy
[2019-04-17 10:24] LABS: Basophils # 0.1 K/mm3 (0-0.2); Basophils % 0.6 % (0.1-2.0); Eosinophils % 0.3 % (0.1-12.0); Lymphocytes # 1.3 K/mm3 (0.7-4.5); Lymphocytes % 14.3 % (10-50); Mean Corpuscular HGB Conc 28.5 g/dL (31.8-35.4); Mean Corpuscular Volume 71.3 fl (81-99); Mean Platelet Volume 7.5 fl (7.4-10.4); Monocytes # 0.3 K/mm3 (0.1-1.0); Monocytes % 3.1 % (1.7-9.3); Neutrophils # 7.3 K/mm3 (1.8-7.8); Neutrophils % 81.8 % (37.0-80.0); Platelet Count 388 K/mm3 (142-424); Red Blood Count 3.37 M/mm3 (4.20-5.40); Red Cell Distribution Width 18.4 % (11.5-17.5)
[2019-04-17 10:38] LABS: Hemoglobin 6.8 g/dL (12.2-16.2)
[2019-04-17 10:47] LABS: Albumin Level 3.2 gm/dL (3.4-5.0); Albumin/Globulin Ratio 1.2 (1.1-1.8); Anion Gap 12.1 mEq/L (5-15); Bilirubin,Total 0.3 mg/dL (0.2-1.0); Calcium 7.7 mg/dL (8.5-10.1); Free T4 (Free Thyroxine) 0.96 ng/dl (0.76-1.46); Globulin 2.7 gm/dl (1.3-3.2); Thyroid Stimulating Hormone 1.68 uIU/ml (0.358-3.740); Total Protein,Serum 5.9 gm/dL (6.4-8.2)
--- NOTE | 2019-04-17 10:58 | Emergency Department Note ---
ED Disposition Clinical Impression: Upper GI bleed, Blood loss anemia Disposition: Admitted As Inpatient Condition on Discharge: Fair - Critical Care Critical Care Time: No Attestation: On 04/17/19, the high probability of a clinically significant, sudden or life threatening deterioration of the following system(s) required my full and direct attention, intervention and personal management. The time I documented below is in addition to time spent performing reported procedures but includes the following listed in this critical care notation. Medical Decision Making - Sg Inquiry Pt receiving controlled substance: No Vital Signs: 04/17/19 09:30 04/17/19 10:42 04/17/19 11:06 Temperature 97.8 F 97.8 F Temperature Source Oral Oral Pulse Rate [Right Brachial] 81 81 72 Respiratory Rate 21 21 18 Blood Pressure [Right Arm] 98/65 L 98/65 L 107/94 H Blood Pressure Mean [Right Arm] 76 76 98 Blood Pressure Source [Right Arm] Automatic Cuff Automatic Cuff Automatic Cuff Blood Pressure Position [Right Arm] Sitting Sitting Supine 02 Sat by Pulse Oximetry 100 100 100 Oxygen Delivery Method Room Air Room Air Room Air 04/17/19 11:29 04/17/19 12:00 04/17/19 12:59 Temperature Temperature Source Pulse Rate [Right Brachial] 73 75 80 Respiratory Rate 20 20 20 Blood Pressure [Right Arm] 94/63 L 100/47 L 98/58 L Blood Pressure Mean [Right Arm] 73 64 71 Blood Pressure Source [Right Arm] Automatic Cuff Automatic Cuff Automatic Cuff Blood Pressure Position [Right Arm] Supine Supine Supine 02 Sat by Pulse Oximetry 100 100 99 Oxygen Delivery Method Room Air Room Air Room Air - Lab Data Lab Results 04/17/19 10:00: WBC 9.0, RBC 3.37 L, Hgb 6.8 L*, Hct 24.0 L, MCV 71.3 L, MCH 20.3 L, MCHC 28.5 L, RDW 18.4 H, Plt Count 388, MPV 7.5, Neut % (Auto) 81.8 H, Lymph % (Auto) 14.3, [place] % (Auto) 3.1, Eos % (Auto) 0.3, Baso % (Auto) 0.6, Neut # (Auto) 7.3, Lymph # (Auto) 1.3, [place] # (Auto) 0.3, Eos # (Auto) 0.0, Baso # (Auto) 0.1 04/17/19 10:00: Sodium 137, Potassium 4.1, Chloride 104, Carbon Dioxide 25, Anion Gap 12.1, BUN 33 H, Creatinine 0.84, Estimated Creat Clear 104, Estimated GFR 72, Est GFR ( Amer) 87, Glucose 95, Calcium 7.7 L, Total Bilirubin 0.3, AST 23, ALT 19, Alkaline Phosphatase 32 L, Total Protein 5.9 L, Albumin 3.2 L, Globulin 2.7, Albumin/Globulin Ratio 1.2, TSH 1.68, Free T4 0.96 04/17/19 11:50: Stool Occult Blood Positive A Result diagrams: 04/17/19 10:00 04/17/19 10:00 Orders (Tests/Meds): ED MEDICATIONS Generic Name Dose Route Start Last Admin Trade Name Freq PRN Reason Stop Dose Admin Pantoprazole Sodium 80 mg/ 100 mls @ 10 mls/hr 04/17/19 13:38 Sodium Chloride IV 04/20/19 13:13 .Q10H LISA Sodium Chloride 1,000 mls @ 50 mls/hr 04/17/19 13:38 Sod Chlor 0.9% 1000ml Bag IV 05/17/19 13:37 .Q20H LISA Sodium Chloride 250 mls @ 25 mls/hr 04/17/19 13:38 Sod Chlor 0.9% 250ml Bag IV 04/18/19 13:37 .Q10H LISA Lisinopril 2.5 mg 04/18/19 09:00 Zestril 2.5mg Tablet PO 05/18/19 08:59 DAILY LISA Metoprolol Succinate 25 mg 04/18/19 09:00 Toprol Xl 25mg Tablet PO 05/18/19 08:59 DAILY LISA Discontinued Medications Generic Name Dose Route Start Last Admin Trade Name Freq PRN Reason Stop Dose Admin Pantoprazole Sodium 80 mg/ 100 mls @ 100 mls/hr 04/17/19 12:14 04/17/19 12:35 Sodium Chloride IV 04/17/19 13:13 100 mls/hr ONCE ONE Administration Pantoprazole Sodium 80 mg/ 100 mls @ 10 mls/hr 04/17/19 13:14 04/17/19 12:35 Sodium Chloride IV 04/20/19 13:13 10 mls/hr .Q10H LISA Administration ORDERS Category Date Time Status Red Blood Cells Stat BBK 04/17/19 13:38 Ordered Consult to On-Call Gen'l Surgeon [CONS] Routine Cons 04/17/19 13:38 Active Complete Blood Count Auto Diff AMLAB Lab 04/18/19 06:00 Ordered - ECG Data Tracing #1 EKG interpreted by Ravi Hensley MD: Rhythm: sinus Rate: 70 [place]: normal Ectopy: none Conduction: normal ST Segment Changes: none T Wave Changes: none Q Waves: none No evidence of acute ischemia or injury - Physician Consults Physician Consulted: Cody Time: 13:05 Reason -: Admission Comment/Response: Agrees to admit the patient to the hospital. We discussed the patient's clinical information, including history, exam, laboratory and radiology results and ED course. Per hospital procedure, I will write temporary bridge inpatient orders on the patient. Specific orders requested by the admitting physician: Continue Protonix drip, transfused 2 units packed red blood cells, consult surgery for endoscopy Additional Consult: Gabrielle Time: 13:42 Reason -: Surgical Eval/Care Comment/Response: Clear liquids, he will see the patient today General Adult HPI - General Chief complaint: Shortness of Breath/Dyspnea Stated complaint: SOA Time Seen by Provider: 04/17/19 11:47 Mode of Arrival: Wheelchair Limitations: No Limitations Description of Symptoms (Recalled from ER Triage Doc. by RN): Complaint of SOB and wanting to be checked for anemia. Seen in [facility] with critical Hgb level and was transferred to the ED. - History of Present Illness HPI narrative: Patient complains of shortness of breath for the past week or more. She is afraid that she is anemic. She has a prior history of anemia. She has noticed dark stools the past couple of days, black today. No hematemesis. No abdominal pain. Prior history of a bleeding ulcer in 2003 after gastric bypass surgery. She does not take iron, she is intolerant to it because of constipation. She does normally take multivitamins, stopped taking them last April, but on preoperative laboratory tests for a cervical disc surgery she was discovered to have a hemoglobin of 8.2, so she restarted the vitamins in January. She is not on any antacids or stomach medications. She does not routinely take nonsteroidal anti-inflammatory drugs, occasionally takes ibuprofen. She only drinks alcohol socially. She presented to the urgent treatment center, had a CBC done which showed a hemoglobin of 6.8, brought to the emergency room. - Related Data Home Medications Medication Instructions Recorded Confirmed Ascorbic Acid [Vitamin C] 500 mg PO DAILY 03/16/18 04/17/19 Cyanocobalamin (Vitamin B-12) 2,500 mcg PO DAILY 03/16/18 04/17/19 [Vitamin B12 2.5mg Tab] Multivitamin [Multivitamins] 1 each PO DAILY 03/16/18 04/17/19 Aspirin [Aspirin 81mg EC Tab] 81 mg PO DAILY 04/17/19 04/17/19 Clopidogrel Bisulfate [Clopidogrel 75 mg PO DAILY 04/17/19 04/17/19 75mg Tab] Metoprolol Succinate [Toprol XL 25 mg PO DAILY 04/17/19 04/17/19 25mg tablet] lisinopriL [Zestril 2.5mg Tablet] 2.5 mg PO DAILY 04/17/19 04/17/19 Allergies Allergy/AdvReac Type Severity Reaction Status Date / Time No Known Allergies Allergy Verified 10/11/18 08:50 [facility] History - Hepatitis A Screen Drug use history?: No High risk sexual behaviors?: No History of sexually transmitted infection?: No Currently employed?: No Childcare worker?: No Do you have indoor plumbing?: Yes Do you have electricity?: Yes Attestation statement:: This patient has been screened for Hepatitis A risk factors. I have reviewed the patient's past medical history: Yes Medical History: Reports:: Coronary Artery Disease, Hyperlipidemia, Hypertension, Myocardial Infarction Denies:: Cancer, Diabetes Mellitus Type 1, Diabetes Mellitus Type 2, MRSA Other Medical History: Reports: Anemia Other Surgeries: Yes: No Previous Surgery, Bariatric Surgery, Cardiac Catheterization, Cholecystectomy, , Tubal Ligation, Other Amputation: No Fractures: No - Social History Smoking Status: Never smoker Alcohol Intake: never Alcohol Intake Frequency:: holidays/special occasions only Substance Use Type: denies use Occupational Status: employed Housing: house Household Members: family Family Hx:: Cancer, Hypertension, Diabetes, Coronary Artery Disease, Heart Attack Comment: Maternal Grandmother- of [place] at 54. Mother-CAD with stents around 48. Father-HTN ROS Obtained: Yes All systems reviewed & no additional complaints - Constitutional Constitutional: Denies fever(s) - Cardiovascular Cardiovascular: Denies chest pain - Respiratory Respiratory: Yes dyspnea - Gastrointestinal Gastrointestingal: Reports: black, tarry stools. Denies: abdominal pain, vomiting blood Physical Exam - General General appearance: alert, in no apparent distress - Head Head exam: atraumatic, normocephalic - Eye Eye exam: Present: normal appearance, EOMI - ENT ENT exam: Present: mucous membranes moist - Neck Neck exam: Present: normal inspection, trachea midline - Chest Chest inspection: Present: normal inspection, symmetric chest wall rise - Respiratory Respiratory exam: Present: normal lung sounds bilaterally. Absent: respiratory distress - Cardiovascular Cardiovascular exam: Present: regular rate, normal rhythm, normal heart sounds - Abdominal Exam Abdominal exam: Present: soft, normal bowel sounds. Absent: distention, tenderness, guarding - Rectal Exam Rectal exam: Present: black stool - Extremities Exam Extremities exam: Present: normal inspection - Neurological Exam Neurological exam: Present: alert, oriented X3 - Psychiatric Psychiatric exam: Present: normal affect, normal mood - Skin Skin exam: Present: warm, dry, pallor. Absent: diaphoresis
--- NOTE | 2019-04-17 14:18 | Pharmacy Consult Notes ---
[facility] Pharmacy VTE Monitoring - Patient Demographics Admission date: 04/17/19 Report Date: 04/17/19 Time: 14:18 Allergies/Adverse Reactions: Patient Allergies No Known Allergies Allergy (Verified 10/11/18 08:50) Height: 54.76 m Weight: 2.466 kg Patient Problems: Current Active Problems Anemia (Acute) Upper GI bleed (Acute) Blood loss anemia (Acute) - VTE Risk Labs: VTE Related Lab Results Hgb 6.8 g/dL (12.2-16.2) L* 04/17/19 10:00 Hct 24.0 % (37.0-47.0) L 04/17/19 10:00 Plt Count 388 K/mm3 (142-424) 04/17/19 10:00 BUN 33 mg/dL (7-18) H 04/17/19 10:00 Creatinine 0.84 mg/dL (0.55-1.02) 04/17/19 10:00 Estimated Creat Clear 104 mL/min (50-200) 04/17/19 10:00 Clinical Trial Participant: No - Prophylaxis VTE Prophylaxis Ordered?: Yes Types of VTE Prophylaxis: TEDS Knee High
--- NOTE | 2019-04-17 14:30 | Consult Report ---
*Admission Date: 04/17/19 *Reason for consult:: Upper GI bleed *History of present illness: Patient is a very pleasant 48-year-old female from [place] who has a longstanding history of anemia. Of note, patient underwent laparoscopic gastric bypass surgery in 2003 in [place]. She states that approximately 10 days postoperatively she had developed an ulcer within the gastric pouch which was treated medically. She then had a recurrent ulcer several months later. As stated above, she does have a longstanding history of chronic anemia. However, over the past 1 to 2 weeks she has had some progressive weakness and shortness of breath with exertion. This is become much more severe over the past several days and she was concerned that she may have progressive anemia. This morning she did have a black stool and she therefore presented to initially the urgent treatment center. He was found to have evidence of anemia with hemoglobin of 6.8 and was evaluated in the emergency department where she was admitted for inpatient management. Surgical consultation was obtained. Review of Systems - Review of Systems Review of systems:: pertinent systems reviewed and negative unless documented below [facility] History Medical History: Reports:: Coronary Artery Disease, Hyperlipidemia, Hypertension, Myocardial Infarction Denies:: Cancer, Diabetes Mellitus Type 1, Diabetes Mellitus Type 2, MRSA *Have you ever received a pneumonia vaccine?: Yes *Have you received a flu vaccine this season?: Yes Other Medical History: Reports: Anemia Other Surgeries: Yes: No Previous Surgery, Bariatric Surgery, Cardiac Catheterization, Cholecystectomy, , Tubal Ligation, Other Amputation: No Fractures: No - *Social History Smoking Status: Never smoker Alcohol Intake: never Alcohol Intake Frequency:: holidays/special occasions only Substance Use Type: denies use *Occupational Status:: employed Housing: house Household Members: family *Travel in the last 8 weeks: None Family Hx:: Cancer, Hypertension, Diabetes, Coronary Artery Disease, Heart Attack Meds Home Medications Medication Instructions Recorded Confirmed Type Ascorbic Acid [Vitamin C] 500 mg PO DAILY 03/16/18 04/17/19 History Cyanocobalamin (Vitamin B-12) 2,500 mcg PO DAILY 03/16/18 04/17/19 History [Vitamin B12 2.5mg Tab] Multivitamin [Multivitamins] 1 each PO DAILY 03/16/18 04/17/19 History Aspirin [Aspirin 81mg EC Tab] 81 mg PO DAILY 04/17/19 04/17/19 History Atorvastatin Calcium [Atorvastatin 40 mg PO HS 04/17/19 04/17/19 History 40mg Tab] Clopidogrel Bisulfate [Clopidogrel 75 mg PO DAILY 04/17/19 04/17/19 History 75mg Tab] Metoprolol Succinate [Toprol XL 25 mg PO DAILY 04/17/19 04/17/19 History 25mg tablet] lisinopriL [Zestril 2.5mg Tablet] 2.5 mg PO DAILY 04/17/19 04/17/19 History Allergies Allergy/AdvReac Type Severity Reaction Status Date / Time No Known Allergies Allergy Verified 10/11/18 08:50 Exam Vital signs and Labs for Last 24 Hours: Temp Pulse Resp BP Pulse Ox 98.1 F 80 20 98/58 L 100 04/17/19 13:55 04/17/19 13:55 04/17/19 13:55 04/17/19 13:55 04/17/19 13:54 Laboratory Results - last 24 hr 04/17/19 10:00: WBC 9.0, RBC 3.37 L, Hgb 6.8 L*, Hct 24.0 L, MCV 71.3 L, MCH 20.3 L, MCHC 28.5 L, RDW 18.4 H, Plt Count 388, MPV 7.5, Neut % (Auto) 81.8 H, Lymph % (Auto) 14.3, [facility] % (Auto) 3.1, Eos % (Auto) 0.3, Baso % (Auto) 0.6, Neut # (Auto) 7.3, Lymph # (Auto) 1.3, [facility] # (Auto) 0.3, Eos # (Auto) 0.0, Baso # (Auto) 0.1 04/17/19 10:00: Sodium 137, Potassium 4.1, Chloride 104, Carbon Dioxide 25, Anion Gap 12.1, BUN 33 H, Creatinine 0.84, Estimated Creat Clear 104, Estimated GFR 72, Est GFR ( Amer) 87, Glucose 95, Calcium 7.7 L, Total Bilirubin 0.3, AST 23, ALT 19, Alkaline Phosphatase 32 L, Total Protein 5.9 L, Albumin 3.2 L, Globulin 2.7, Albumin/Globulin Ratio 1.2, TSH 1.68, Free T4 0.96 04/17/19 11:50: Stool Occult Blood Positive A I & O for Last 24 hours: Intake & Output 04/15/19 04/16/19 04/17/19 04/18/19 11:59 11:59 11:59 11:59 Weight 182 lb 5 lb 7 oz - *Routine HEENT Exam Head: Present: normocephalic Eye: Present: EOMI, PERRL ENT: Present: mucous membranes moist - *Routine Neck Exam Present: supple. Absent: lymphadenopathy - *Routine Respiratory Exam Present: CTA bilaterally - *Routine Cardiovascular Exam Present: RRR - *Routine Abdominal Exam Present: soft, normoactive bowel sounds. Absent: tenderness - *Routine Extremities Exam Absent: cyanosis, clubbing, edema - *Routine Skin Exam Present: warm. Absent: rash - *Routine Neurological Exam Present: alert, oriented X3 - Detailed Eye Exam Eyelids: Left normal inspection Results - Labs 04/17/19 10:00 04/17/19 10:00 Laboratory Results - last 24 hr 04/17/19 10:00: WBC 9.0, RBC 3.37 L, Hgb 6.8 L*, Hct 24.0 L, MCV 71.3 L, MCH 20.3 L, MCHC 28.5 L, RDW 18.4 H, Plt Count 388, MPV 7.5, Neut % (Auto) 81.8 H, Lymph % (Auto) 14.3, [facility] % (Auto) 3.1, Eos % (Auto) 0.3, Baso % (Auto) 0.6, Neut # (Auto) 7.3, Lymph # (Auto) 1.3, [facility] # (Auto) 0.3, Eos # (Auto) 0.0, Baso # (Auto) 0.1 04/17/19 10:00: Sodium 137, Potassium 4.1, Chloride 104, Carbon Dioxide 25, Anion Gap 12.1, BUN 33 H, Creatinine 0.84, Estimated Creat Clear 104, Estimated GFR 72, Est GFR ( Amer) 87, Glucose 95, Calcium 7.7 L, Total Bilirubin 0.3, AST 23, ALT 19, Alkaline Phosphatase 32 L, Total Protein 5.9 L, Albumin 3.2 L, Globulin 2.7, Albumin/Globulin Ratio 1.2, TSH 1.68, Free T4 0.96 04/17/19 11:50: Stool Occult Blood Positive A Assessment and Plan - Assessment and plan all Dx Assessment and Plan for all problems:: Urine and laboratory findings with elevated BUN and anemia as well as history of melena or clinical scenario would be consistent with upper GI blood loss source. She currently is hemodynamically stable and in no distress. At this time plan will be for continuation of proton pump inhibitors and transfusion today to assess for appropriate response. We will not plan at this time for urgent upper endoscopy as this seems unnecessary for therapeutic purposes at this time but tentatively plan for diagnostic upper endoscopy tomorrow morning. I will plan for her to limit to clear liquid diet today however in case she does require more urgent EGD.
--- NOTE | 2019-04-17 15:08 | History & Physical Report ---
*Admission Date: 04/17/19 <Madonna Solorio 04/17/19 15:08> *Chief complaint: anemia <Solorio,Madonna 04/17/19 15:08> *History of present illness: Matthew Matta is a 48-year-old female from [place] will a longstanding history of anemia, coronary artery disease with NSTEMI in 02/2018, and varicose veins, and recent cervical spine surgery January 2019. Of note, patient underwent laparoscopic gastric bypass surgery in 2003 in [place]. She stated that approximately 10 days postoperatively she had developed an ulcer within the gastric pouch which was treated medically and [place]. She then had a recurrent ulcer several months later. As stated above, she does have a lo ngstanding history of chronic anemia. However, over the past 1 to 2 weeks she has had some progressive weakness and shortness of breath with exertion. This came much more severe over the past several days and she was concerned that she may have progressive anemia. This morning she noted a black stool and she therefore presented to initially the urgent treatment center. She was having difficulty showering and dressing this a.m. as well. She was found to have evidence of anemia with hemoglobin of 6.8 and was evaluated in the emergency department where she was admitted for inpatient management. Surgical consultation was obtained. With this assessment patient denies chest pain and shortness of breath. Describes having recently changed her diet for weight loss and has been eating more fruits and vegetables. She has also been taking vinegar on a daily basis at. She rarely takes NSAIDs. Patient states occasionally she has some left upper abdomen discomfort for short duration. <OsminMadonna 04/17/19 19:10> [facility] History Medical History: Reports:: Coronary Artery Disease, Gastrointestinal Bleed, Hyperlipidemia, Hypertension, Myocardial Infarction Denies:: Cancer, Diabetes Mellitus Type 1, Diabetes Mellitus Type 2, MRSA <OsminMadonna 04/17/19 15:50> *Have you ever received a pneumonia vaccine?: No <Madonna Solorio 04/17/19 15:08> *Have you received a flu vaccine this season?: No <Madonna Solorio 04/17/19 15:08> Other Medical History: Reports: Anemia <Madonna Solorio 04/17/19 15:08> Other Surgeries: Yes: No Previous Surgery, Bariatric Surgery, Cardiac Catheterization, Cholecystectomy, , Tubal Ligation, Other <Madonna Solorio 04/17/19 15:50> Amputation: No <Madonna Solorio 04/17/19 15:08> Fractures: No <Madonna Solorio 04/17/19 15:08> - *Social History Educational Level: Completed College <Madonna Solorio 04/17/19 15:50> Smoking Status: Never smoker <OsminMadonna 04/17/19 15:08> Alcohol Intake: never <Madonna Solorio 04/17/19 15:08> Alcohol Intake Frequency:: holidays/special occasions only <Madonna Solorio 04/17/19 15:08> Substance Use Type: denies use <OsminMadonna 04/17/19 15:08> *Occupational Status:: employed <OsminMadonna 04/17/19 15:08> Housing: house <OsminMadonna 04/17/19 15:08> Household Members: family <Madonna Solorio 04/17/19 15:08> *Travel in the last 8 weeks: None <Madonna Solorio 04/17/19 15:08> Family Hx:: Cancer, Hypertension, Diabetes, Coronary Artery Disease, Heart Attack <OsminMadonna 04/17/19 15:08> Review of Systems - Constitutional Reports lack of energy, Denies chills, Denies fever(s), Denies headache(s) <SolorioMadonna 04/17/19 19:10> - Eyes Denies change in vision <SolorioMadonna 04/17/19 19:10> - ENT Reports dizziness, Denies ear pain, Denies headache(s), Denies sore throat <SolorioMadonna 04/17/19 19:10> - *Cardiovascular Denies chest pain, Denies shortness of breath, Denies irregular heart rhythm <SolorioMadonna 04/17/19 19:10> - *Respiratory Denies chest congestion, Denies cough, Denies shortness of breath, Denies coughing up blood <SolorioMadonna 04/17/19 19:10> - *Gastrointestinal Reports abdominal pain, Reports constipation, Reports black, tarry stools, Reports vomiting, Denies bloating, Denies loose stools, Denies heartburn, Denies vomiting blood, Denies bright, red blood in stools, Denies nausea <Madonna Solorio - 04/17/19 19:10> - *Genitourinary Denies difficulty urinating <Madonna Solorio 04/17/19 19:10> - *Musculoskeletal Denies abnormal walking <Madonna Solorio 04/17/19 19:10> - *Neurologic Denies abnormal speech, Denies behavioral changes, Denies dizziness, Denies frequent falls <Madonna Solorio 04/17/19 19:10> Meds Home Medications Medication Instructions Recorded Confirmed Type Ascorbic Acid [Vitamin C] 500 mg PO DAILY 03/16/18 04/17/19 History Cyanocobalamin (Vitamin B-12) 2,500 mcg PO DAILY 03/16/18 04/17/19 History [Vitamin B12 2.5mg Tab] Multivitamin [Multivitamins] 1 each PO DAILY 03/16/18 04/17/19 History Aspirin [Aspirin 81mg EC Tab] 81 mg PO DAILY 04/17/19 04/17/19 History Atorvastatin Calcium [Atorvastatin 40 mg PO HS 04/17/19 04/17/19 History 40mg Tab] Clopidogrel Bisulfate [Clopidogrel 75 mg PO DAILY 04/17/19 04/17/19 History 75mg Tab] Metoprolol Succinate [Toprol XL 25 mg PO DAILY 04/17/19 04/17/19 History 25mg tablet] lisinopriL [Zestril 2.5mg Tablet] 2.5 mg PO DAILY 04/17/19 04/17/19 History <Felix Ross - 04/17/19 21:33> Allergies Allergy/AdvReac Type Severity Reaction Status Date / Time No Known Allergies Allergy Verified 04/17/19 14:34 <Felix Ross - 04/17/19 21:33> Exam Vital signs and Labs for Last 24 Hours: Temp Pulse Resp BP Pulse Ox 98.1 F 89 15 101/70 L 100 04/17/19 19:05 04/17/19 19:05 04/17/19 19:05 04/17/19 19:05 04/17/19 19:05 Laboratory Results - last 24 hr 04/17/19 10:00: WBC 9.0, RBC 3.37 L, Hgb 6.8 L*, Hct 24.0 L, MCV 71.3 L, MCH 20.3 L, MCHC 28.5 L, RDW 18.4 H, Plt Count 388, MPV 7.5, Neut % (Auto) 81.8 H, Lymph % (Auto) 14.3, [place] % (Auto) 3.1, Eos % (Auto) 0.3, Baso % (Auto) 0.6, Neut # (Auto) 7.3, Lymph # (Auto) 1.3, [place] # (Auto) 0.3, Eos # (Auto) 0.0, Baso # (Auto) 0.1 04/17/19 10:00: Sodium 137, Potassium 4.1, Chloride 104, Carbon Dioxide 25, Anion Gap 12.1, BUN 33 H, Creatinine 0.84, Estimated Creat Clear 104, Estimated GFR 72, Est GFR ( Amer) 87, Glucose 95, Calcium 7.7 L, Total Bilirubin 0.3, AST 23, ALT 19, Alkaline Phosphatase 32 L, Total Protein 5.9 L, Albumin 3.2 L, Globulin 2.7, Albumin/Globulin Ratio 1.2, TSH 1.68, Free T4 0.96 04/17/19 11:50: Stool Occult Blood Positive A 04/17/19 14:43: Blood Type A Positive, Antibody Screen Negative, Crossmatch (AHG) See Detail 04/17/19 15:29: Blood Type Confirm A Positive <Felix Ross - 04/17/19 21:33> Temp Pulse Resp BP Pulse Ox 98.1 F 80 20 98/58 L 100 04/17/19 13:55 04/17/19 13:55 04/17/19 13:55 04/17/19 13:55 04/17/19 13:54 Laboratory Results - last 24 hr 04/17/19 10:00: WBC 9.0, RBC 3.37 L, Hgb 6.8 L*, Hct 24.0 L, MCV 71.3 L, MCH 20.3 L, MCHC 28.5 L, RDW 18.4 H, Plt Count 388, MPV 7.5, Neut % (Auto) 81.8 H, Lymph % (Auto) 14.3, [place] % (Auto) 3.1, Eos % (Auto) 0.3, Baso % (Auto) 0.6, Neut # (Auto) 7.3, Lymph # (Auto) 1.3, [place] # (Auto) 0.3, Eos # (Auto) 0.0, Baso # (Auto) 0.1 04/17/19 10:00: Sodium 137, Potassium 4.1, Chloride 104, Carbon Dioxide 25, Anion Gap 12.1, BUN 33 H, Creatinine 0.84, Estimated Creat Clear 104, Estimated GFR 72, Est GFR ( Amer) 87, Glucose 95, Calcium 7.7 L, Total Bilirubin 0.3, AST 23, ALT 19, Alkaline Phosphatase 32 L, Total Protein 5.9 L, Albumin 3.2 L, Globulin 2.7, Albumin/Globulin Ratio 1.2, TSH 1.68, Free T4 0.96 04/17/19 11:50: Stool Occult Blood Positive A 04/17/19 14:43: Crossmatch (AHG) See Detail <Madonna Solorio - 04/17/19 15:08> I & O for Last 24 hours: Intake & Output 04/15/19 04/16/19 04/17/19 04/18/19 11:59 11:59 11:59 11:59 Intake Total 360 / 360 Balance 360 / 360 Weight 182 lb 5 lb 7 oz <CodyFelix Shola - 04/17/19 21:33> Intake & Output 04/15/19 04/16/19 04/17/19 04/18/19 11:59 11:59 11:59 11:59 Weight 182 lb 5 lb 7 oz <Madonna Solorio - 04/17/19 15:08> - Constitutional no acute distress <Madonna Solorio - 04/17/19 19:10> Comments: Sitting in chair at bedside receiving packed red blood cells. is visiting as well. <Madonna Solorio 04/17/19 19:10> - *Routine HEENT Exam Head: Present: normocephalic, atraumatic <Madonna Solorio 04/17/19 19:10> Eye: Present: PERRL. Absent: conjunctival icterus, scleral injection, conjunctivae pink <Solorio,[facility] 04/17/19 19:10> - *Routine Neck Exam Present: supple. Absent: carotid bruit, lymphadenopathy, thyromegaly <[facility] 04/17/19 19:10> - *Routine Respiratory Exam Present: CTA bilaterally (Anteriorly and posteriorly) <[facility] 04/17/19 19:10> - *Routine Cardiovascular Exam Present: RRR <[facility] 04/17/19 19:10> - *Routine Abdominal Exam Present: soft, normoactive bowel sounds. Absent: tenderness, distended, guarding <[facility] 04/17/19 19:10> - *Routine Extremities Exam Absent: edema, calf tenderness <[facility] 04/17/19 19:10> - *Routine Neurological Exam Present: alert, oriented X3 <[facility] 04/17/19 19:10> Assessment and Plan (1) Anemia Current visit: Yes Status: Acute Qualifiers: Anemia type: unspecified type Qualified Code(s): D64.9 - Anemia, unspecified Category: Medical Code(s): D64.9 - Anemia, unspecified (2) Upper GI bleed Current visit: Yes Status: Acute Category: Medical Code(s): K92.2 - Gastrointestinal hemorrhage, unspecified (3) CAD (coronary artery disease) Current visit: No Status: Chronic Qualifiers: Coronary Disease-Associated Artery/Lesion type: [place] artery [place] vs. transplanted heart: [place] heart Associated angina: without angina Qualified Code(s): I25.10 - Atherosclerotic heart disease of [place] coronary artery without angina pectoris Category: Medical Code(s): I25.10 - Atherosclerotic heart disease of [place] coronary artery without angina pectoris (4) HTN (hypertension) Current visit: No Status: Chronic Qualifiers: Hypertension type: essential hypertension Qualified Code(s): I10 - Essential (primary) hypertension Category: Medical Code(s): I10 - Essential (primary) hypertension (5) History of non-ST elevation myocardial infarction (NSTEMI) Current visit: No Status: Chronic Category: Medical Code(s): I25.2 - Old myocardial infarction (6) History of gastric bypass Current visit: Yes Status: Acute Category: Surgical Code(s): Z98.84 - Bariatric surgery status <CodyFelix emery Shola - 04/17/19 21:33> (1) Anemia Current visit: Yes Status: Acute Qualifiers: Anemia type: unspecified type Qualified Code(s): D64.9 - Anemia, unspecified Category: Medical Code(s): D64.9 - Anemia, unspecified (2) Upper GI bleed Current visit: Yes Status: Acute Category: Medical Code(s): K92.2 - Gastrointestinal hemorrhage, unspecified (3) CAD (coronary artery disease) Current visit: No Status: Chronic Qualifiers: Coronary Disease-Associated Artery/Lesion type: [place] artery [place] vs. transplanted heart: [place] heart Associated angina: without angina Qualified Code(s): I25.10 - Atherosclerotic heart disease of [place] coronary artery without angina pectoris Category: Medical Code(s): I25.10 - Atherosclerotic heart disease of [place] coronary artery without angina pectoris (4) HTN (hypertension) Current visit: No Status: Chronic Qualifiers: Hypertension type: essential hypertension Qualified Code(s): I10 - Essential (primary) hypertension Category: Medical Code(s): I10 - Essential (primary) hypertension (5) History of non-ST elevation myocardial infarction (NSTEMI) Current visit: No Status: Chronic Category: Medical Code(s): I25.2 - Old myocardial infarction (6) History of gastric bypass Current visit: Yes Status: Acute Category: Surgical Code(s): Z98.84 - Bariatric surgery status <Madonna Solorio - 04/17/19 19:00> - Assessment and plan all Dx Assessment and Plan for all problems:: Patient seen and examined. Surgical consult appreciated. Concur with assessment and plan as outlined above <Felix Ross - 04/17/19 21:33> Dr. Anthony, surgeon, has seen the patient and plans EGD in the a.m. She is currently receiving packed red blood cells. We will monitor her H&H. <Madonna Solorio - 04/17/19 19:10>
--- NOTE | 2019-04-17 15:32 | Electrocardiograph Report ---
APPROVED REPORT Exam: Resting ECG HR:70 bpm ECG Measurements Heart Rate 70 AXES IL 118 P 68 QRSd 86 QRS 38 QT 396 T65 QTc 427 <Conclusion> Normal sinus rhythm Normal ECG Electronically signed by : Ethan Lora, 04/17/2019 15:32:07
[2019-04-18 02:16] LABS: Hematocrit 24.6 % (37.0-47.0)
[2019-04-18 02:19] LABS: Hemoglobin 7.2 g/dL (12.2-16.2)
--- NOTE | 2019-04-18 06:46 | Progress Note ---
[facility] Anesthesia Checklist - Patient Identification Patient Identification: Arm Band, Verbal (Name & ) - Structural Data Admitted From: Inpatient Planned Operative Procedure/s: egd Consent for Planned Operative Procedure(s) Verified: Yes Verified Documents: History and Physical - NPO Status Verified Time NPO: 00:00 - Additional verifications Patient : No Anesthesia Reactions: No Hx Blood Transfusions: No Blood Transfusion Reaction: No Cephalosporin Allergy: No Previous Colonoscopy: No - Cardiovascular Assessment Heart Sounds: S1 & S2 Pulse Strength: Baseline Pulse Rhythm: Regular Peripheral Edema: No - Airway Assessment C-Spine Mobility Assessed: Yes TMJ Mobility Assessed: Yes Dentition: Good Dentition - Neurological Assessment Level of Consciousness: Awake, Alert, Appropriate Hx Seizures: No Numbness or tingling in extremities: No - Anesthesia Plan Anesthesia Risk discussed: Yes Anesthesia Plan: Verified ASA Class: III Anesthesia Type: [facility] History I have reviewed the patient's past medical history: Yes Medical History: Reports:: Coronary Artery Disease, Gastrointestinal Bleed, Hyperlipidemia, Hypertension, Myocardial Infarction Denies:: Cancer, Diabetes Mellitus Type 1, Diabetes Mellitus Type 2, MRSA *Have you ever received a pneumonia vaccine?: No *Have you received a flu vaccine this season?: No Other Medical History: Reports: Anemia Anesthesia experience/problems:: none Other Surgeries: Yes: No Previous Surgery, Bariatric Surgery, Cardiac Catheterization, Cholecystectomy, , Tubal Ligation, Other Amputation: No Fractures: No - *Social History Educational Level: Completed College Smoking Status: Never smoker Alcohol Intake: never Alcohol Intake Frequency:: holidays/special occasions only Substance Use Type: denies use *Occupational Status:: employed Housing: house Household Members: family *Travel in the last 8 weeks: None Family Hx:: Cancer, Hypertension, Diabetes, Coronary Artery Disease, Heart Attack
--- NOTE | 2019-04-18 07:28 | Procedure Note ---
- Procedure: Date: 04/18/19 Procedure Performed:: Esophagogastroscopy Indications:: Patient is a very pleasant 48-year-old female from [place] who has a longstanding history of anemia. Of note, patient underwent laparoscopic gastric bypass surgery in 2003 in [place]. She states that approximately 10 days postoperatively she had developed an ulcer within the gastric pouch which was treated medically. She then had a recurrent ulcer several months later. As stated above, she does have a longstanding history of chronic anemia. However, over the past 1 to 2 weeks she has had some progressive weakness and shortness of breath with exertion. This is become much more severe over the past several days and she was concerned that she may have progressive anemia. This morning she did have a black stool and she therefore presented to initially the urgent treatment center. He was found to have evidence of anemia with hemoglobin of 6.8 and was evaluated in the emergency department where she was admitted for inpatient management. Surgical consultation was obtained. Patient appeared hemodynamically stable. Plan was made for transfusion of 2 units packed red blood cells with scheduled upper endoscopy the following morning at 7 AM. She was given 2 units of packed red blood cells overnight with minimal improvement in hemoglobin. Plan was to proceed with upper endoscopy. Performing Provider:: Dg Anthony MD Referring Provider:: Shola Ross MD Sedation:: Propofol Procedure:: Patient was taken to endoscopy procedure room. She was positioned in a lateral decubitus position. Adequate intravenous sedation was achieved with anesthesia titration of propofol. Olympus endoscope was inserted via the oropharynx. Esophagus was cannulated and the endoscope was advanced. Esophagus appeared unremarkable. Gastric pouch was entered. She appeared to have appropriately very small gastric pouch. There was some dark gastric liquid which was suctioned free. Endoscope was easily advanced into the widely patent gastrojejunostomy anastomosis and a generous distance down the Hé[place] limb. Thorough irrigation and suctioning was performed within the jejunum and gastric pouch. There was not noted to be any obvious source of bleeding or active bleeding noted. However, visualization was somewhat suboptimal due to lack of distention of the gastric pouch. Endoscope was then withdrawn. Findings:: No obvious source of bleeding in gastric pouch or Hé[place] limb. Visualization somewhat suboptimal due to lack of ability to fully extend the small gastric pouch. Should be noted that a large portion of her upper GI system is unable to be endoscopically evaluated due to her prior surgery. Recommendations:: Plan to continue additional 2 units of packed red blood cell transfusion today. I will see about checking a bleeding scan to see if there is any evidence of persistent active bleeding. Likely will need antiplatelet agent held in the short-term, if not longer term, if approved by cardiology. Complications:: None immediately apparent Estimated blood obtained (mL): 0
--- NOTE | 2019-04-18 08:34 | Progress Note ---
<Madonna Solorio - Last Filed: 04/18/19 08:35> Internal Medicine - PN: Subj *Date: 04/18/19 *Time: 08:35 Interval history: Patient has just returned from endoscopy. She has a sore throat. She denies any stomach pain, nausea, and no vomiting. She did have a stool yesterday p.m. She is on her fourth unit of packed red blood cells. She does have some shortness of breath but no chest pain. Per endoscopy no obvious source of bleeding. Exam Vital signs and Labs for Last 24 Hours: Temp Pulse Resp BP Pulse Ox 98.6 F 70 18 131/58 L 100 04/18/19 08:25 04/18/19 08:25 04/18/19 08:25 04/18/19 08:25 04/18/19 08:25 Laboratory Results - last 24 hr 04/17/19 10:00: WBC 9.0, RBC 3.37 L, Hgb 6.8 L*, Hct 24.0 L, MCV 71.3 L, MCH 20.3 L, MCHC 28.5 L, RDW 18.4 H, Plt Count 388, MPV 7.5, Neut % (Auto) 81.8 H, Lymph % (Auto) 14.3, [place] % (Auto) 3.1, Eos % (Auto) 0.3, Baso % (Auto) 0.6, Neut # (Auto) 7.3, Lymph # (Auto) 1.3, [place] # (Auto) 0.3, Eos # (Auto) 0.0, Baso # (Auto) 0.1 04/17/19 10:00: Sodium 137, Potassium 4.1, Chloride 104, Carbon Dioxide 25, Anion Gap 12.1, BUN 33 H, Creatinine 0.84, Estimated Creat Clear 104, Estimated GFR 72, Est GFR ( Amer) 87, Glucose 95, Calcium 7.7 L, Total Bilirubin 0.3, AST 23, ALT 19, Alkaline Phosphatase 32 L, Total Protein 5.9 L, Albumin 3.2 L, Globulin 2.7, Albumin/Globulin Ratio 1.2, TSH 1.68, Free T4 0.96 04/17/19 11:50: Stool Occult Blood Positive A 04/17/19 14:43: Blood Type A Positive, Antibody Screen Negative, Crossmatch (AHG) See Detail 04/17/19 15:29: Blood Type Confirm A Positive 04/18/19 02:10: Hgb 7.2 L*, Hct 24.6 L I & O for Last 24 hours: Intake & Output 04/15/19 04/16/19 04/17/19 04/18/19 11:59 11:59 11:59 11:59 Intake Total 2170 / 2170 Output Total 2100 / 2100 Balance 70 / 70 Weight 182 lb 180 lb 15.992 oz Radiology Reports for the Last 24 Hours: Endoscopy results 04/18/2019 Findings:: No obvious source of bleeding in gastric pouch or Hé[place] limb. Visualization somewhat suboptimal due to lack of ability to fully extend the small gastric pouch. Should be noted that a large portion of her upper GI system is unable to be endoscopically evaluated due to her prior surgery. Recommendations:: Plan to continue additional 2 units of packed red blood cell transfusion today. I will see about checking a bleeding scan to see if there is any evidence of persistent active bleeding. Likely will need antiplatelet agent held in the short-term, if not longer term, if approved by cardiology. Complications:: None immediately apparent - Constitutional no acute distress Comments: Sitting up in a chair. - *Routine Respiratory Exam Present: CTA bilaterally (Anteriorly and posteriorly) - *Routine Cardiovascular Exam Present: RRR - *Routine Abdominal Exam Present: soft, normoactive bowel sounds. Absent: tenderness, distended - *Routine Extremities Exam Absent: edema, calf tenderness - *Routine Neurological Exam Present: alert, oriented X3 Assessment and Plan (1) Anemia Current visit: Yes Status: Acute Qualifiers: Anemia type: unspecified type Qualified Code(s): D64.9 - Anemia, unspecified Category: Medical Code(s): D64.9 - Anemia, unspecified (2) Upper GI bleed Current visit: Yes Status: Acute Category: Medical Code(s): K92.2 - Gastrointestinal hemorrhage, unspecified (3) CAD (coronary artery disease) Current visit: No Status: Chronic Qualifiers: Coronary Disease-Associated Artery/Lesion type: [place] artery [place] vs. transplanted heart: [place] heart Associated angina: without angina Qualified Code(s): I25.10 - Atherosclerotic heart disease of [place] coronary artery without angina pectoris Category: Medical Code(s): I25.10 - Atherosclerotic heart disease of [place] coronary artery without angina pectoris (4) HTN (hypertension) Current visit: No Status: Chronic Qualifiers: Hypertension type: essential hypertension Qualified Code(s): I10 - Essential (primary) hypertension Category: Medical Code(s): I10 - Essential (primary) hypertension (5) History of non-ST elevation myocardial infarction (NSTEMI) Current visit: No Status: Chronic Category: Medical Code(s): I25.2 - Old myocardial infarction (6) History of gastric bypass Current visit: Yes Status: Acute Category: Surgical Code(s): Z98.84 - Bariatric surgery status - Assessment and plan all Dx Assessment and Plan for all problems:: We will continue with packed red blood cells administration. Will monitor H&H. Can restart clear liquid diet as per Dr. Anthony <Felix Ross - Last Filed: 04/18/19 13:35> Internal Medicine - PN: Subj *Date: 04/18/19 *Time: 13:34 Exam Vital signs and Labs for Last 24 Hours: Temp Pulse Resp BP Pulse Ox 98.5 F 81 18 108/59 L 100 04/18/19 11:22 04/18/19 11:22 04/18/19 11:22 04/18/19 11:22 04/18/19 11:22 Laboratory Results - last 24 hr 04/17/19 14:43: Blood Type A Positive, Antibody Screen Negative, Crossmatch (AHG) See Detail 04/17/19 15:29: Blood Type Confirm A Positive 04/18/19 02:10: Hgb 7.2 L*, Hct 24.6 L 04/18/19 11:55: WBC 11.4 H D, RBC 4.03 L, Hgb 10.1 L D, Hct 30.9 L, MCV 76.8 L, MCH 25.0 L, MCHC 32.5, RDW 18.7 H, Plt Count 222 D, MPV 9.4, Neut % (Auto) 75.3, Lymph % (Auto) 17.0, [place] % (Auto) 6.8, Eos % (Auto) 0.6, Baso % (Auto) 0.3, Neut # (Auto) 8.6 H, Lymph # (Auto) 2.0, [place] # (Auto) 0.8, Eos # (Auto) 0.1, Baso # (Auto) 0.0 I & O for Last 24 hours: Intake & Output 04/16/19 04/17/19 04/18/19 04/19/19 11:59 11:59 11:59 11:59 Intake Total 2463 / 2463 Output Total 2099 Balance 363 / 363 Weight 182 lb 180 lb 15.992 oz Assessment and Plan (1) Anemia Current visit: Yes Status: Acute Qualifiers: Anemia type: unspecified type Qualified Code(s): D64.9 - Anemia, unspecified Category: Medical Code(s): D64.9 - Anemia, unspecified (2) Upper GI bleed Current visit: Yes Status: Acute Category: Medical Code(s): K92.2 - Gastrointestinal hemorrhage, unspecified (3) CAD (coronary artery disease) Current visit: No Status: Chronic Qualifiers: Coronary Disease-Associated Artery/Lesion type: [place] artery [place] vs. transplanted heart: [place] heart Associated angina: without angina Qualified Code(s): I25.10 - Atherosclerotic heart disease of [place] coronary artery without angina pectoris Category: Medical Code(s): I25.10 - Atherosclerotic heart disease of [place] coronary artery without angina pectoris (4) HTN (hypertension) Current visit: No Status: Chronic Qualifiers: Hypertension type: essential hypertension Qualified Code(s): I10 - Essential (primary) hypertension Category: Medical Code(s): I10 - Essential (primary) hypertension (5) History of non-ST elevation myocardial infarction (NSTEMI) Current visit: No Status: Chronic Category: Medical Code(s): I25.2 - Old myocardial infarction (6) History of gastric bypass Current visit: Yes Status: Acute Category: Surgical Code(s): Z98.84 - Bariatric surgery status - Assessment and plan all Dx Assessment and Plan for all problems:: Patient seen and examined this AM. She looks and feels much better. No further dyspnea with exertion. EGD report noted. Awaiting further recommendations per Dr. Anthony
[2019-04-18 12:05] LABS: Basophils % 0.3 % (0.1-2.0); Eosinophils # 0.1 K/mm3 (0.0-0.4); Hematocrit 30.9 % (37.0-47.0)
[2019-04-18 12:08] LABS: Eosinophils % 0.6 % (0.1-12.0); Mean Corpuscular HGB Conc 32.5 g/dL (31.8-35.4); Mean Corpuscular Volume 76.8 fl (81-99); Mean Platelet Volume 9.4 fl (7.4-10.4); Monocytes # 0.8 K/mm3 (0.1-1.0); Monocytes % 6.8 % (1.7-9.3); Neutrophils # 8.6 K/mm3 (1.8-7.8); Neutrophils % 75.3 % (37.0-80.0); Platelet Count 222 K/mm3 (142-424); Red Blood Count 4.03 M/mm3 (4.20-5.40); Red Cell Distribution Width 18.7 % (11.5-17.5); White Blood Count 11.4 K/mm3 (4.8-10.8)
[2019-04-18 12:14] LABS: Hemoglobin 10.1 g/dL (12.2-16.2)
--- NOTE | 2019-04-19 06:58 | Progress Note ---
Subjective Patient reports: no new complaints, feels better Exam Vital signs and Labs for Last 24 Hours: Temp Pulse Resp BP Pulse Ox 98.0 F 79 17 100/49 L 96 04/19/19 04:00 04/19/19 04:00 04/19/19 04:00 04/19/19 04:10 04/19/19 04:00 Laboratory Results - last 24 hr 04/17/19 14:43: Blood Type A Positive, Antibody Screen Negative, Crossmatch (AHG) See Detail 04/18/19 11:55: WBC 11.4 H D, RBC 4.03 L, Hgb 10.1 L D, Hct 30.9 L, MCV 76.8 L, MCH 25.0 L, MCHC 32.5, RDW 18.7 H, Plt Count 222 D, MPV 9.4, Neut % (Auto) 75.3, Lymph % (Auto) 17.0, [place] % (Auto) 6.8, Eos % (Auto) 0.6, Baso % (Auto) 0.3, Neut # (Auto) 8.6 H, Lymph # (Auto) 2.0, [place] # (Auto) 0.8, Eos # (Auto) 0.1, Baso # (Auto) 0.0 I & O for Last 24 hours: Intake & Output 04/16/19 04/17/19 04/18/19 04/19/19 11:59 11:59 11:59 11:59 Intake Total 2463 / 2463 2447 / 2447 Output Total 2100 / 2100 Balance 363 / 363 2447 / 2447 Weight 182 lb 180 lb 15.992 oz 178 lb 8 oz - Constitutional no acute distress - *Routine Respiratory Exam Absent: respiratory distress - *Routine Cardiovascular Exam Present: RRR Progress Note: A&P (1) Anemia Status: Acute Current Visit: Yes (2) Upper GI bleed Status: Acute Assessment and plan: Overall, doing well s/p 4 units PRBCs f/u AM labs possible d/c home today with close outpatient follow-up Current Visit: Yes (3) CAD (coronary artery disease) Status: Chronic Current Visit: No (4) HTN (hypertension) Status: Chronic Current Visit: No (5) History of non-ST elevation myocardial infarction (NSTEMI) Status: Chronic Current Visit: No (6) History of gastric bypass Status: Acute Current Visit: Yes
[2019-04-19 07:55] LABS: Basophils % 0.5 % (0.1-2.0); Eosinophils # 0.1 K/mm3 (0.0-0.4); Eosinophils % 2.3 % (0.1-12.0); Hematocrit 29.8 % (37.0-47.0); Hemoglobin 9.2 g/dL (12.2-16.2); Lymphocytes % 18.2 % (10-50); Mean Corpuscular HGB Conc 30.9 g/dL (31.8-35.4); Mean Corpuscular Volume 80.1 fl (81-99); Mean Platelet Volume 8.2 fl (7.4-10.4); Monocytes # 0.2 K/mm3 (0.1-1.0); Monocytes % 3.4 % (1.7-9.3); Neutrophils # 4.2 K/mm3 (1.8-7.8); Neutrophils % 75.6 % (37.0-80.0); Platelet Count 250 K/mm3 (142-424); Red Blood Count 3.72 M/mm3 (4.20-5.40); Red Cell Distribution Width 18.2 % (11.5-17.5); White Blood Count 5.6 K/mm3 (4.8-10.8)
--- NOTE | 2019-04-19 08:06 | Progress Note ---
<Alesia Mead - Last Filed: 04/19/19 08:04> Internal Medicine - PN: Subj *Date: 04/19/19 *Time: 08:04 Interval history: Patient states she is feeling much better this morning. She actually did sleep at intervals last night. She denies any pain. She is still passing some dark black stools but the frequency of those stools has decreased. She is anxious to go home today. Exam Vital signs and Labs for Last 24 Hours: Temp Pulse Resp BP Pulse Ox 97.5 F L 75 18 101/47 L 100 04/19/19 07:35 04/19/19 07:35 04/19/19 07:35 04/19/19 07:35 04/19/19 07:35 Laboratory Results - last 24 hr 04/17/19 14:43: Blood Type A Positive, Antibody Screen Negative, Crossmatch (AHG) See Detail 04/18/19 11:55: WBC 11.4 H D, RBC 4.03 L, Hgb 10.1 L D, Hct 30.9 L, MCV 76.8 L, MCH 25.0 L, MCHC 32.5, RDW 18.7 H, Plt Count 222 D, MPV 9.4, Neut % (Auto) 75.3, Lymph % (Auto) 17.0, [place] % (Auto) 6.8, Eos % (Auto) 0.6, Baso % (Auto) 0.3, Neut # (Auto) 8.6 H, Lymph # (Auto) 2.0, [place] # (Auto) 0.8, Eos # (Auto) 0.1, Baso # (Auto) 0.0 04/19/19 07:25: WBC 5.6 D, RBC 3.72 L, Hgb 9.2 L, Hct 29.8 L, MCV 80.1 L, MCH 24.8 L, MCHC 30.9 L, RDW 18.2 H, Plt Count 250, MPV 8.2, Neut % (Auto) 75.6, Lymph % (Auto) 18.2, [place] % (Auto) 3.4, Eos % (Auto) 2.3, Baso % (Auto) 0.5, Neut # (Auto) 4.2, Lymph # (Auto) 1.0, [place] # (Auto) 0.2, Eos # (Auto) 0.1, Baso # (Auto) 0.0 I & O for Last 24 hours: Intake & Output 04/16/19 04/17/19 04/18/19 04/19/19 11:59 11:59 11:59 11:59 Intake Total 2463 / 2463 2687 / 2687 Output Total 2099 / 2100 Balance 363 / 363 2687 / 2687 Weight 182 lb 180 lb 15.992 oz 178 lb 8 oz - Constitutional no acute distress - *Routine Respiratory Exam Present: CTA bilaterally - *Routine Cardiovascular Exam Present: RRR - *Routine Abdominal Exam Present: soft, normoactive bowel sounds. Absent: tenderness - *Routine Extremities Exam Absent: cyanosis, clubbing, edema - *Routine Skin Exam Present: warm. Absent: rash - *Routine Neurological Exam Present: alert, oriented X3 Assessment and Plan (1) Anemia Status: Acute Qualifiers: Anemia type: unspecified type Qualified Code(s): D64.9 - Anemia, unspecified Category: Medical Code(s): D64.9 - Anemia, unspecified (2) Upper GI bleed Status: Acute Category: Medical Code(s): K92.2 - Gastrointestinal hemorrhage, unspecified (3) CAD (coronary artery disease) Status: Chronic Qualifiers: Coronary Disease-Associated Artery/Lesion type: [place] artery [place] vs. transplanted heart: [place] heart Associated angina: without angina Qualified Code(s): I25.10 - Atherosclerotic heart disease of [place] coronary artery without angina pectoris Category: Medical Code(s): I25.10 - Atherosclerotic heart disease of [place] coronary artery without angina pectoris (4) HTN (hypertension) Status: Chronic Qualifiers: Hypertension type: essential hypertension Qualified Code(s): I10 - Essential (primary) hypertension Category: Medical Code(s): I10 - Essential (primary) hypertension (5) History of non-ST elevation myocardial infarction (NSTEMI) Status: Chronic Category: Medical Code(s): I25.2 - Old myocardial infarction (6) History of gastric bypass Status: Acute Category: Surgical Code(s): Z98.84 - Bariatric surgery status - Assessment and plan all Dx Assessment and Plan for all problems:: Patient has been seen by surgery and can possibly be discharged home today with close outpatient follow-up. Her H&H did decrease slightly from yesterday. <Felix Ross - Last Filed: 04/19/19 13:08> Internal Medicine - PN: Subj *Date: 04/19/19 *Time: 13:07 Exam Vital signs and Labs for Last 24 Hours: Temp Pulse Resp BP Pulse Ox 97.5 F L 75 18 101/47 L 100 04/19/19 07:35 04/19/19 07:35 04/19/19 07:35 04/19/19 07:35 04/19/19 07:35 Laboratory Results - last 24 hr 04/19/19 07:25: WBC 5.6 D, RBC 3.72 L, Hgb 9.2 L, Hct 29.8 L, MCV 80.1 L, MCH 24.8 L, MCHC 30.9 L, RDW 18.2 H, Plt Count 250, MPV 8.2, Neut % (Auto) 75.6, Lymph % (Auto) 18.2, [place] % (Auto) 3.4, Eos % (Auto) 2.3, Baso % (Auto) 0.5, Neut # (Auto) 4.2, Lymph # (Auto) 1.0, [place] # (Auto) 0.2, Eos # (Auto) 0.1, Baso # (Auto) 0.0 I & O for Last 24 hours: Intake & Output 04/17/19 04/18/19 04/19/19 04/20/19 11:59 11:59 11:59 11:59 Intake Total 2463 / 2463 2687 / 2687 Output Total 2100 / 2100 Balance 363 / 363 2687 / 2687 Weight 182 lb 180 lb 15.992 oz 178 lb 8 oz Assessment and Plan (1) Anemia Status: Acute Qualifiers: Anemia type: unspecified type Qualified Code(s): D64.9 - Anemia, unspecified Category: Medical Code(s): D64.9 - Anemia, unspecified (2) Upper GI bleed Status: Acute Category: Medical Code(s): K92.2 - Gastrointestinal hemorrhage, unspecified (3) CAD (coronary artery disease) Status: Chronic Qualifiers: Coronary Disease-Associated Artery/Lesion type: [place] artery [place] vs. transplanted heart: [place] heart Associated angina: without angina Qualified Code(s): I25.10 - Atherosclerotic heart disease of [place] coronary artery without angina pectoris Category: Medical Code(s): I25.10 - Atherosclerotic heart disease of [place] coronary artery without angina pectoris (4) HTN (hypertension) Status: Chronic Qualifiers: Hypertension type: essential hypertension Qualified Code(s): I10 - Essential (primary) hypertension Category: Medical Code(s): I10 - Essential (primary) hypertension (5) History of non-ST elevation myocardial infarction (NSTEMI) Status: Chronic Category: Medical Code(s): I25.2 - Old myocardial infarction (6) History of gastric bypass Status: Acute Category: Surgical Code(s): Z98.84 - Bariatric surgery status - Assessment and plan all Dx Assessment and Plan for all problems:: Patient seen and examined this morning. Again she feels well and is eager to go home. Hemoglobin dropped but likely equilibrating. She has had no further evidence of bleeding. Will plan for discharge and close follow-up to monitor H&H and for ongoing outpatient surgical evaluation.
--- NOTE | 2019-04-23 16:06 | Discharge Summary ---
General - General Admission date:: 04/17/19 Discharge date: 04/19/19 HPI HPI: Matthew Matta is a 48-year-old female from [place] will a longstanding history of anemia, coronary artery disease with NSTEMI in 02/2018, and varicose veins, and recent cervical spine surgery January 2019. Of note, patient underwent laparoscopic gastric bypass surgery in 2003 in [place]. She stated that approximately 10 days postoperatively she had developed an ulcer within the gastric pouch which was treated medically with Carafate. She then had a recurrent ulcer several months later. As stated above, she does have a longstanding history of chronic anemia. However, over the past 1 to 2 weeks she has had some progressive weakness and shortness of breath with exertion. This became much more severe and she was concerned that she may have progressive anem ia. On the morning of admission she noted a black stool and she therefore presented to initially the urgent treatment center. She was having difficulty showering and dressing. She was found to have evidence of anemia with hemoglobin of 6.8 and was evaluated in the emergency department where she was admitted for inpatient management. Surgical consultation was obtained. Hospital Course Hospital Course: The patient was admitted and surgery was consulted. She was given 2 units of PRBC's. She was seen in consultation by Dr. Anthony who felt she had an upper GI blood loss source. He recommended to continue PPIs and transfuse to assess for an appropriate response. He started her on clear liquids and planned for an EGD the next day. The EGD showed no obvious source of bleeding. A large portion of her upper GI system was unable to be endoscopically evaluated due to her previous gastric surgery. He ordered 2 additional units of packed red blood cells. Her H&H improved to 10.1 and 30.9. She had no further dyspnea with exertion. She was seen by Dr. Lundberg in Dr. Anthony's absence and he felt that she could be discharged home with close outpatient follow-up. The patient felt much better and was anxious to get home. She was still passing some dark black stools, but the frequency of those stools had decreased. Her hemoglobin did drop back to 9.2 and her hematocrit to 29.8 but it was likely equilibrating. She was stable to be discharged home with close outpatient surgical evaluation. Objective Vital signs: Temp Pulse Resp BP Pulse Ox 97.5 F L 75 18 101/47 L 100 04/19/19 07:35 04/19/19 07:35 04/19/19 07:35 04/19/19 07:35 04/19/19 07:35 Narrative: - Constitutional no acute distress - *Routine Respiratory Exam Present: CTA bilaterally - *Routine Cardiovascular Exam Present: RRR - *Routine Abdominal Exam Present: soft, normoactive bowel sounds. Absent: tenderness - *Routine Extremities Exam Absent: cyanosis, clubbing, edema - *Routine Skin Exam Present: warm. Absent: rash - *Routine Neurological Exam Present: alert, oriented X3 DS: Diagnosis - Discharge Diagnosis (1) Anemia Status: Acute (2) Upper GI bleed Status: Acute (3) CAD (coronary artery disease) Status: Chronic (4) HTN (hypertension) Status: Chronic (5) History of non-ST elevation myocardial infarction (NSTEMI) Status: Chronic (6) History of gastric bypass Status: Acute Discharge Plan - Patient Discharge Instructions ACTIVITY: Continue current activity DIET: continue same diet Patient Instructions: Anemia - Follow up Plan Follow up with: Dg Anthony MD [Staff Physician] - 1 week Felix Ross MD [Primary Care Provider] - 04/24/19 Disposition: Home, Self-[facility] Medications: Home Medications Medication Instructions Recorded Confirmed Type Ascorbic Acid [Vitamin C] 500 mg PO DAILY 03/16/18 04/17/19 History Cyanocobalamin (Vitamin B-12) 2,500 mcg PO DAILY 03/16/18 04/17/19 History [Vitamin B12 2.5mg Tab] Multivitamin [Multivitamins] 1 each PO DAILY 03/16/18 04/17/19 History Atorvastatin Calcium [Atorvastatin 40 mg PO HS 04/17/19 04/17/19 History 40mg Tab] Metoprolol Succinate [Toprol XL 25 mg PO DAILY 04/17/19 04/17/19 History 25mg tablet] lisinopriL [Zestril 2.5mg Tablet] 2.5 mg PO DAILY 04/17/19 04/17/19 History Pantoprazole Sodium [Protonix 40mg 40 mg PO DAILY #30 packet 04/19/19 Rx (granule) packet] Prescriptions/Medication Reconciliation: New Pantoprazole Sodium [Protonix 40mg (granule) packet] 40 mg PO DAILY #30 packet Continued Cyanocobalamin (Vitamin B-12) [Vitamin B12 2.5mg Tab] 2,500 mcg PO DAILY Ascorbic Acid [Vitamin C] 500 mg PO DAILY lisinopriL [Zestril 2.5mg Tablet] 2.5 mg PO DAILY Atorvastatin Calcium [Atorvastatin 40mg Tab] 40 mg PO HS Multivitamin [Multivitamins] 1 each PO DAILY Metoprolol Succinate [Toprol XL 25mg tablet] 25 mg PO DAILY Discontinued Clopidogrel Bisulfate [Clopidogrel 75mg Tab] 75 mg PO DAILY Aspirin [Aspirin 81mg EC Tab] 81 mg PO DAILY - Problem Reconciliation Problems Reviewed?: Yes
== END 2019-04-19 09:30 | disposition home or self-care (01) | DRG 812 ==
LOC: ER 09:20 → UTC 09:20 → 2ND 13:18
PROVIDERS: ADMIT Family Medicine; ATTEND Family Medicine
CPT/HCPCS: 36415; 80053; 82272; 84439; 84443; 85014; 85018; 85025; 86850; 93005; 96365; 96375; 99284; G0328; P9016

== ENCOUNTER → 2019-04-20 13:03 | Outpatient (CLI) | payer OTHER, SELFPAY ==
[2019-04-20 13:19] LABS: Basophils % 0.7 % (0.1-2.0); Eosinophils # 0.2 K/mm3 (0.0-0.4); Eosinophils % 2.4 % (0.1-12.0); Lymphocytes # 1.9 K/mm3 (0.7-4.5); Lymphocytes % 29.6 % (10-50); Mean Corpuscular HGB Conc 31.6 g/dL (31.8-35.4); Mean Corpuscular Hemoglobin 25.3 pg (27.0-31.2); Mean Platelet Volume 7.9 fl (7.4-10.4); Monocytes # 0.3 K/mm3 (0.1-1.0); Monocytes % 5.2 % (1.7-9.3); Neutrophils # 3.9 K/mm3 (1.8-7.8); Platelet Count 340 K/mm3 (142-424); Red Blood Count 3.69 M/mm3 (4.20-5.40); Red Cell Distribution Width 20.3 % (11.5-17.5); White Blood Count 6.2 K/mm3 (4.8-10.8)
[2019-04-20 13:24] LABS: Hematocrit 29.2 % (37.0-47.0)
== END ==
PROVIDERS: Visit Provider Family Medicine
DX: D64.9 Anemia, unspecified (principal)
CPT/HCPCS: 36415; 85025

== ENCOUNTER → 2020-05-17 09:18 | Outpatient (CLI) | payer BC, SELFPAY ==
[2020-05-17] VITALS (20 sets, daily range): BP systolic 103–133; BP diastolic 48–94; PULSE 50–71; RESP 16; TEMP 36.3–36.9; O2SAT 96–99; BMI 32.1
[2020-05-17 18:16] LABS: Hematocrit 32.6 % (37.0-47.0); Hemoglobin 9.3 g/dL (12.2-16.2)
== END ==
PROVIDERS: PCP Family Medicine; Visit Provider Family Medicine
DX: D50.0 Iron deficiency anemia secondary to blood loss (chronic) (principal)
CPT/HCPCS: 36430; 85014; 85018; 86850; P9016

== ENCOUNTER → 2021-05-21 06:35 | Outpatient (CLI) | payer BC, SELFPAY ==
--- NOTE | 2021-05-21 | CA_ITS ---
APPROVED REPORT EXAM: Comprehensive 2D, Doppler, and color-flow Echocardiogram Remote Sensing Analyst: Larissa Lacey RVT Ht: 5 ft 6 in Wt: 210lbs BSA: 2.04 BP: 122/35 mmHg Indications: CAD,CM,HTN,MAURICIO,FATIGUE,HLD,BREAST IMPLANTS 2D Dimensions LVOT 2.53 cm (M/F) 1.5-2.5 LA Volume 34.40 mL LA Volume Index 16.86 mL/m2 (M/F) 16-34 M-Mode Dimensions RVDd 1.94 cm (0.9-2.6) LA Diam 2.89 cm (1.9-4.0) LVDd 5.00 cm (3.5-5.7) Ao Diam 2.82 cm (2.0-3.7) LVDs 3.56 cm (3.5-5.7) IVSd 1.33 cm (0.6-1.1) PWd 0.75 cm (0.6-1.1) EF (Teich) 55.20% FS 28.80% EDV (Teich) 118.20 mL TAPSE 1.98 (<1.7) ESV (Teich) 53.00 mL LV Diastology E Decel Time 270.00 (160-240 msec) E/A Ratio 1.0 MED E' 7.90 (< 7 cm/sec) E'/MED E' Ratio 7.32 (>14) LAT E' 13.40 (<10 cm/sec) E/LAT E' Ratio 4.31 (>14) Aortic Valve AO Peak GR. 6.40 mmHg Mitral Valve MV E Max Rick. 58.00 (40-130 cm/s) MV A Velocity 59.00 (40-130 cm/s) E/A Ratio 0.98 MV Decel. Time 270.00 (160-240 ms) MV PHT 79.00 ms Pulmonary Valve PV Peak Velocity 62.00 (50-150 cm/s) Left Ventricle Left atrium is normal size, left ventricle is normal size, there is no concentric left ventricular hypertrophy, visually estimated ejection fraction 55% with no regional wall motion abnormality. Right Ventricle Right atrium and right ventricle are normal size and contractility. Aortic Valve Aortic valve is minimally thickened and fibrosed, there is no aortic stenosis or aortic insufficiency. Mitral Valve Mitral valve grossly normal, there is trace mitral regurgitation. Tricuspid Valve Tricuspid grossly normal, there is trace tricuspid regurgitation, tricuspid regurgitation jet velocity is inadequate for calculation of the right ventricular systolic pressure. Pulmonic Valve Pulmonic valve is poorly visualized. Great Vessels Aortic root is normal size. Inferior vena cava is mildly dilated with normal inspiratory collapse. Pericardium No significant pericardial effusion noted. There is left-sided pleural effusion seen. Conclusion 1. Normal left ventricular size, preserved left ventricular systolic function, visually estimated ejection fraction 55% with no regional wall motion abnormality, diastolic parameters are within normal range. 2. Trace mitral and tricuspid regurgitation. 3. No significant pericardial effusion, there is left-sided pleural effusion seen. 4. Inferior vena cava is mildly dilated with normal inspiratory collapse. Electronically signed by : Elie Cisneros MD 05/21/2021 14:47:00
--- NOTE | 2021-05-21 06:38 | CA_ITS ---
APPROVED REPORT Exam: Exercise Treadmill Technologist: Jolanta Salgado, Ht: 5 ft 6 in Wt: 210 lbs BSA: 2.04 m2 HR: 61 bpm BP: 97/42 mmHg Rhythm: NSR, cannot R/O old inferior [place] Medical History Medical History: HTN, Hyperlipidemia Medications: Metoprolol,,,,, Pantoprazole,,,,, Vit C,,,,, Vit B12,,,,, AtorvaASTATIN,,,,, Multivitamin,,,,, Ferosul,,,,, Cardiac Risk Factors: HTN, Hyperlipidemia Stress Test Details Test: Eduar HR Resting HR: 85 bpm Max Heart Rate (APMHR): 168.101879 bpm Max HR Achieved: 151 bpm Target HR (85% APMHR): 142.527777 bpm % of APMHR: 89.88 Recovery HR: 117 bpm BP Resting BP: 104/55 mmHg Max BP: 122/50 mmHg Recovery BP: 118.0/64.0 mmHg ECG Resting ECG: NSR, cannot R/O old inferior [place] Clinical Exercise duration: 05:59 min Highest Stage Achieved: Exercise capacity: 7.0 METs Stress ECG Conclusion During eduar protocol pt exercised total of 6:00. Pt experinced SOA, no CP. No arrthymias noted. Within normal ST response to exercise. Normal GXT. Myoview images reported separately. Test Summary REST . . . . . . . Sitting REST . . . . . . . Standing REST 05:24 0.0 0.0 85 . 104/ 55 . . Stage 1 01:00 10.0 1.7 115 . . . . Stage 1 02:00 10.0 1.7 124 . . . . Stage 1 03:00 10.0 1.7 131 . . . . Stage 2 01:00 12.0 2.5 140 . 122/ 50 . . Stage 2 02:00 12.0 2.5 149 . 122/ 50 . . Stage 2 02:59 12.0 2.5 148 . 122/ 50 . Stop exercise at 05:59 RECOVERY 01:00 0.0 0.0 113 . . . . RECOVERY 02:00 0.0 0.0 112 . 118/ 64 . . RECOVERY 03:00 0.0 0.0 89 . 118/ 64 . . RECOVERY 04:00 0.0 0.0 81 . 114/ 46 . . RECOVERY 05:00 0.0 0.0 86 . 96/ 61 . . RECOVERY 06:00 0.0 0.0 86 . 101/ 49 . . RECOVERY 06:05 0.0 0.0 83 . 101/ 49 . . Electronically signed by : Elie Cisneros MD 05/21/2021 15:21:20
--- NOTE | 2021-05-21 06:38 | NM_ITS ---
APPROVED REPORT Exam: Nuclear Stress Test Indication: SOB, Fatigue, Hx of [place], Family history Patient Location: Outpatient Stress Tech: Jolanta CHAPA Tech:Carmen OttoABRAHAM RT(R)(N) Ht: 5 ft 7 in Wt: 204 lbs Bra Size: 38C HR: 85 bpm BP: 104/55 mmHg BSA: 2.04 m2 BMI: 31.9 History: SOB, Fatigue, Hx of [place], Family history Procedure: Patient exercised on Alvin protocol 5:59 minutes and sec, resting heart rate 85 bpm, resting blood pressure 104/55 mmHg, with exercise maximum heart rate achived was 149 bpm which is 90 % of the maximum predicted heart rate and blood pressure was 122/50 mmHg. Test was stopped due to SOB. Patient denied any complaint of chest pain. Patient has Adequate exercise capacity, achieved 7.0 METs of workload on treadmill, the blood pressure response to exercise was Adequate. Electrocardiogram Resting electrocardiogram shows sinus rhythm, with exercise there is less than 1.[address] segment depression noted from the baseline EKG. The EKG portion of the exercise Myoview is negative for ischemia. Cardiac Stress and Resting SPECT Images: Cardiac Stress and Resting SPECT images were obtained using technetium 99m Myoview 31.5 mCi stress and 10.59 mCi at rest. Gated SPECT analysis of segmental wall motion and calculation of the ejection fraction also done. Cardiac stress and rest SPECT may show fixed defect in the anterior wall with normal contractility is likely secondary to soft tissue attenuation, no reversible ischemia seen, computer derived ejection fraction is 50% with no regional wall motion abnormality, right ventricle is normal size and contractility. Conclusion: 1. The EKG portion of the exercise Myoview is negative for ischemia, patient has adequate exercise capacity achieved seven METS of workload on treadmill, the blood pressure response to exercise was adequate, there was no exercise-induced chest discomfort. 2. No scintigraphic evidence of reversible ischemia seen, compared right ejection fraction is 50% with no regional wall motion abnormality, right ventricle is normal size and contractility. 3. Likely normal exercise Myoview study. Electronically signed by : Elie Cisneros MD 05/21/2021 15:43:22
== END ==
LOC: RAD 06:38
PROVIDERS: PCP Family Medicine; Visit Provider Nurse Practitioner Family
DX: I42.9 Cardiomyopathy, unspecified (principal); R42 Dizziness and giddiness; I25.10 Atherosclerotic heart disease of native coronary artery without angina pectoris; D64.9 Anemia, unspecified; E78.2 Mixed hyperlipidemia; I10 Essential (primary) hypertension; I25.2 Old myocardial infarction
CPT/HCPCS: 78452; 93017; 93306; A9502

== ENCOUNTER → 2021-06-24 16:13 | Outpatient (CLI) | payer BC, SELFPAY | PROVIDERS: PCP Family Medicine; Visit Provider Surgery | DX: Z20.822 Contact with and (suspected) exposure to COVID-19 (principal) | CPT/HCPCS: C9803; U0003; U0005 ==

== ENCOUNTER 2021-06-26 10:33 | Day surgery (SDC) | payer BC, SELFPAY ==
[2021-06-26 11:01] VITALS: BP 112/50; PULSE 70; RESP 16; TEMP 36.4; O2SAT 97; BMI 29.9
[2021-06-26 11:28] LABS: Urine Pregnancy, HCG Qual. Negative (Negative)
--- NOTE | 2021-06-26 11:30 | P.PN_ITS ---
[facility] Anesthesia Checklist - Patient Identification Patient Identification: Arm Band, Verbal (Name & ) - Structural Data Admitted From: Home Planned Operative Procedure/s: Colonoscopy Consent for Planned Operative Procedure(s) Verified: Yes Verified Documents: Surgical Consent - Chart Verification Results Verified: None - Additional verifications Anesthesia Reactions: No Hx Blood Transfusions: No Blood Transfusion Reaction: No - Airway Assessment C-Spine Mobility Assessed: Yes Dentition: Good Dentition - Neurological Assessment Level of Consciousness: Awake, Alert, Appropriate - Anesthesia Plan Anesthesia Risk discussed: Yes ASA Class: II Anesthesia Type: MAC [facility] History I have reviewed the patient's past medical history: Yes Medical History: Reports:: Coronary Artery Disease, Gastrointestinal Bleed, Hyperlipidemia, Hypertension, Myocardial Infarction Denies:: Cancer, Diabetes Mellitus Type 1, Diabetes Mellitus Type 2, Internal Pacemaker, MRSA, Seizures *Have you ever received a pneumonia vaccine?: No *Have you received a flu vaccine this season?: Yes Other Medical History: Reports: Anemia. Denies: Blood Transfusion Reaction Anesthesia experience/problems:: none Other Surgeries: Yes: No Previous Surgery, Bariatric Surgery, Cardiac Catheterization, Cholecystectomy, , Tubal Ligation, Other. No: Pacemaker Amputation: No Fractures: No - *Social History Last grade of school completed: Advanced degree Smoking Status: Never smoker Alcohol Intake: current Alcohol Intake Frequency:: holidays/special occasions only Substance Use Type: denies use *Occupational Status:: employed Housing: house Household Members: spouse *Travel in the last 8 weeks: None Family Hx:: Coronary Artery Disease, Diabetes
[2021-06-26 11:35] VITALS: O2SAT 97
--- NOTE | 2021-06-26 12:18 | HMH.SCOPE ---
- Procedure: Date: 06/26/21 Patient Date of :: 1970 Procedure Performed:: Total colonoscopy to terminal ileum with biopsy Indications:: Patient is a 50-year-old female from [place]. She is a nurse. She previously underwent gastric bypass. She has a history of anemia. I had performed EGD on 04/18/2019. Recommendations were for possible colonoscopy after that but she was unable to follow through due to Covid pandemic. She subsequently did require transfusion. However, she has not had any visible bleeding. With appropriate nutrition and vitamin supplementation her hemoglobin has increased and stabilized. Plan was for colonoscopy. Performing Provider:: Dg Anthony MD Referring Provider:: Shola Ross MD Sedation:: MAC sedation Procedure:: Patient was taken to endoscopy procedure room. She was positioned in lateral decubitus position. Adequate intravenous sedation was achieved with anesthesia titration of propofol. Variable stiffness Olympus colonoscope was inserted via the anus. Was advanced to the cecum with some minor abdominal pressure due to some redundancy of the colon. Ileocecal valve and appendiceal orifice were clearly identified. Colonic preparation was somewhat poor as there was black liquid sand-like particulate stool filling much of the colon, particularly right colon. Extremely thorough irrigation and suctioning was carried out which allowed for fairly good visualization. Colonoscope was advanced into the terminal ileum which appeared grossly normal. Colonoscope was slowly withdrawn through the colon with careful surveillance with thorough irrigation and suctioning. There was a subtle mucosal irregularity of the sigmoid colon which was biopsied with cold biopsy. She had moderate sigmoid diverticulosis. Retroflexion within the rectum revealed no evidence of any pathologic internal hemorrhoids. Colonoscope was withdrawn. Findings:: Fair preparation with particulate sand-like liquid stool throughout the colon Sigmoid diverticulosis Subtle focal sigmoid mucosal irregularity removed with biopsy forceps Recommendations:: Given the suboptimal preparation recommend repeat colonoscopy in approximately 2 years with aggressive bowel regimen and with holding iron supplementation if she is on oral iron. Complications:: None immediately apparent Estimated blood obtained (mL): 1
[2021-06-26 12:19] VITALS: BP 103/52; PULSE 78; RESP 18; TEMP 36.1; O2SAT 96
[2021-06-26 12:29] VITALS: BP 98/55; PULSE 82; RESP 18; O2SAT 97
[2021-06-26 12:39] VITALS: BP 116/51; PULSE 77; RESP 18; O2SAT 100
[2021-06-26 12:50] VITALS: BP 126/50; PULSE 69; RESP 18; O2SAT 97
== END 2021-06-26 12:56 | disposition home or self-care (01) ==
LOC: OUTP 10:35
PROVIDERS: PCP Family Medicine; Visit Provider Surgery
PROC: 0DJD8ZZ Inspection of Lower Intestinal Tract, Via Natural or Artificial Opening Endoscopic (ICD-10-PCS; CPT 45380; principal; 2021-06-26 11:30)
DX: Z12.11 Encounter for screening for malignant neoplasm of colon (principal); K57.30 Diverticulosis of large intestine without perforation or abscess without bleeding; K63.9 Disease of intestine, unspecified; I25.10 Atherosclerotic heart disease of native coronary artery without angina pectoris; E78.5 Hyperlipidemia, unspecified; I10 Essential (primary) hypertension; I25.2 Old myocardial infarction; Z87.19 Personal history of other diseases of the digestive system; Z79.82 Long term (current) use of aspirin; Z79.899 Other long term (current) drug therapy
CPT/HCPCS: 45380; 81025

== ENCOUNTER 2022-07-07 09:21 | Emergency (ER) | payer BC, SELFPAY ==
[2022-07-07] VITALS (10 sets, daily range): BP systolic 116–141; BP diastolic 59–85; PULSE 60–76; RESP 16–20; TEMP 36.5–36.6; O2SAT 98–100; BMI 25.8
--- NOTE | 2022-07-07 09:30 | ECG_ITS ---
APPROVED REPORT Exam: Resting ECG HR:63 bpm ECG Measurements Heart Rate 63 AXES [place] 163 P 70 QRSd 96 QRS 58 QT 383 T 39 QTc 390 Conclusion SINUS RHYTHM LOW QRS VOLTAGE IN PRECORDIAL LEADS [QRS DEFLECTION < 1.0 mV IN CHEST LEADS] NONSPECIFIC ST & T-WAVE ABNORMALITY BORDERLINE ECG UNCONFIRMED REPORT Electronically signed by : Ethan Lora MD 07/09/2022 14:26:17
--- NOTE | 2022-07-07 10:05 | HMH.EDGENADL ---
Discharge Plan Disposition Patient Disposition: Home, Self-Care Chief Complaint: Dizziness Prescriptions Prescriptions: No Action ferrous sulfate [FeroSul] 325 mg (65 mg iron) tablet 325 mg PO DAILY Label Comments: TAKE ONE TABLET BY MOUTH THREE TIMES DAILY sucralfate [Carafate] 1 gram tablet 1 g PO BID cholecalciferol (vitamin D3) 125 mcg (5,000 unit) capsule See Rx Instructions PO WEEKLY Rx Instructions: 50,000 units orally weekly; pantoprazole [address] for susp in packet 40 mg PO DAILY aspirin 81 MG tablet,delayed release (DR/EC) 81 mg PO DAILY metoprolol succinate 25 MG tablet extended release 24 hr 25 mg PO DAILY atorvastatin 40 MG tablet 40 mg PO HS Referrals Follow up/Referrals: Felix Ross MD [Primary Care Provider] - See instructions Activity Restrictions/Add. Instructions Additional Instructions/Restrictions: Follow-up with cardiology, they will be able to further assess your dizziness. Also follow-up with your primary care provider regarding this visit to the emergency department. If you have any other concerning signs or symptoms, return to the ER for further evaluation. Clinical Impressions Clinical Impression: Dizziness Discharge ED Provider: Kevin Jiang General Adult HPI General Chief complaint: Dizziness Stated complaint: Phys ref, dizzy Time Seen by Provider: 07/07/22 09:33 Mode of Arrival: Ambulatory Source of Information: Patient Limitations: No Limitations Description of Symptoms (Recalled from ER Triage Doc. by RN): pt comes in with c/o dizziness. pt reports checking blood pressure this am, and it was low. pt reports she feels like her head is moving but her body is stationary. History of Present Illness HPI narrative: Is a 51-year-old female with history of CAD, STEMI, anemia, hypertension, hyperlipidemia who is presenting with dizziness. Patient states that she was walking around this morning at home and felt woozy, but not necessarily dizzy. She states that she had fogginess in her vision on both sides, but no loss of consciousness, no flashes, no floaters, difficulty speaking, unilateral weakness, bowel or bladder dysfunction. There is also no loss of conscious. Patient states that during this time, she had palpitations. It has happened multiple times this morning, 07/07 since that started. Every time since has been associated with her standing up from seated position and walking. She took her blood pressure both times and it was normotensive if not mildly hypotensive. Denies recent illness, vomiting or diarrhea, fevers or chills, or any other concerns. Related Data Home Medications Medication Instructions Recorded Confirmed atorvastatin 40 mg tablet 40 mg PO HS Cholesterol 04/17/19 05/28/22 metoprolol succinate 25 mg 25 mg PO DAILY Hypertension 04/17/19 05/28/22 tablet,extended release 24 hr ferrous sulfate 325 mg (65 mg 325 mg PO DAILY Supplement 05/13/21 05/28/22 iron) tablet (FeroSul) aspirin 81 mg tablet,delayed 81 mg PO DAILY prevention 06/26/21 05/28/22 release pantoprazole 40 mg granules 40 mg PO DAILY stomach 06/26/21 05/28/22 delayed-release for susp in packet cholecalciferol (vitamin D3) 125 See Rx Instructions PO WEEKLY 05/28/22 05/28/22 mcg (5,000 unit) capsule sucralfate 1 gram tablet (Carafate) 1 g PO BID 05/28/22 05/28/22 Allergies Allergy/AdvReac Type Severity Reaction Status Date / Time No Known Allergies Allergy Verified 07/07/22 09:36 [facility] Disclaimer: The information contained in this section may have been updated after the patient was seen, as this information can be updated by other users. Medical History Cardiomyopathy Dizziness Muscle pain Social History Smoking Status: Never smoker second hand exposure: No alcohol intake:
[2022-07-07 10:15] LABS: Basophils % 0.6 % (0.1-2.0); Chloride 97 mmol/L (98-107); Eosinophils # 0.1 K/mm3 (0.0-0.4); Hematocrit 46.5 % (37.0-47.0); Hemoglobin 14.7 g/dL (12.2-16.2); Lymphocytes # 1.5 K/mm3 (0.7-4.5); Lymphocytes % 21.5 % (10-50); Mean Corpuscular HGB Conc 31.7 g/dL (31.8-35.4); Mean Corpuscular Hemoglobin 29.4 pg (27.0-31.2); Mean Corpuscular Volume 92.7 fl (81-99); Mean Platelet Volume 7.1 fl (7.4-10.4); Monocytes # 0.4 K/mm3 (0.1-1.0); Monocytes % 5.8 % (1.7-9.3); Neutrophils # 5.1 K/mm3 (1.8-7.8); Neutrophils % 71.1 % (37.0-80.0); Platelet Count 376 K/mm3 (142-424); Potassium 3.8 mmoL/L (3.5-5.1); Red Blood Count 5.01 M/mm3 (4.20-5.40); Red Cell Distribution Width 13.2 % (11.5-17.5); Sodium 135 mmol/L (136-145); White Blood Count 7.2 K/mm3 (4.8-10.8)
[2022-07-07 10:18] LABS: Anion Gap 11.8 mEq/L (5-15); Blood Urea Nitrogen 11 mg/dl (7-17); Carbon Dioxide 30 mmol/L (22.0-30.0); Creatinine Clearance Estimated 110 mL/min (50-200); Estimated Glomerular Filt Rate 88 ml/min (>60); GFR (African American) 106 ML/MIN (>60)
[2022-07-07 10:19] LABS: Calcium 9.7 mg/dl (8.4-10.2); Glucose 93 mg/dl (74-100)
[2022-07-07 10:31] LABS: Troponin I < 0.01 ng/ml (0.00-0.034)
--- NOTE | 2022-07-07 10:35 | XR_ITS ---
FINAL REPORT CLINICAL HISTORY: dizziness, palpitations, hypotension COMPARISON: None FINDINGS: A single portable view of the chest was obtained. The heart size and pulmonary vascularity are within normal limits. The mediastinum is within normal limits. No acute pulmonary abnormality is identified. Postoperative changes in the lower cervical spine. IMPRESSION: No active cardiopulmonary disease. Reviewed, Interpreted and Dictated by Dg Delgadillo III, MD Transcribed by Carla Elizabeth Authenticated and [facility]
[2022-07-07 10:56] LABS: Coronavirus 19, PCR Not Detected (NotDetected); Influenza A, PCR Not Detected (NotDetected); Influenza B, PCR Not Detected (NotDetected)
--- NOTE | 2022-07-07 12:24 | PC.NURSE ---
SPOKE WITH Rafael IN RADIOLOGY, IMAGES ARE BEING READ AT THIS TIME
--- NOTE | 2022-07-07 14:00 | PC.NURSE ---
pt requesting to speak to doctor before discharge
== END 2022-07-07 14:39 | disposition home or self-care (01) ==
PROVIDERS: Emergency Provider Emergency Medicine; PCP Family Medicine
DX: R42 Dizziness and giddiness (principal)
CPT/HCPCS: 71045; 80048; 84484; 85025; 93005; 96360; 99285; C9803; U0003; U0005

== ENCOUNTER → 2023-01-03 16:11 | Outpatient (CLI) | payer BC, SELFPAY ==
--- NOTE | 2023-01-03 16:14 | MM_ITS ---
PROCEDURE INFORMATION: Exam: Bilateral Screening 3D Mammography Exam date and time: 01/03/2023 4:02 PM Age: 52 years old Clinical indication: Screening examination; No personal or family history of breast cancer TECHNIQUE: Imaging protocol: Bilateral Screening tomosynthesis and 2D mammography including computer-aided detection (CAD) when performed. COMPARISON: NILAY MAMMO SCRN DIGITL IMPLNT 10/30/2013 5:52 PM FINDINGS: MAMMOGRAPHY: Breast composition: There are scattered areas of fibroglandular density. Mass: None. Architectural distortion: None. Calcifications: No suspicious calcifications. Asymmetric density: None. Skin thickening: None. Axillary adenopathy: None. Implants: Subpectoral saline breast implants are present. IMPRESSION: No mammographic evidence of malignancy. Annual screening is recommended unless otherwise clinically indicated. ASSESSMENT: BI-RADS Category 1: Negative
== END ==
PROVIDERS: PCP Family Medicine; Visit Provider Social Worker
DX: Z12.31 Encounter for screening mammogram for malignant neoplasm of breast (principal)
CPT/HCPCS: 77063; 77067

== ENCOUNTER 2024-05-26 09:30 | Outpatient (CLI) | payer BC, SELFPAY ==
[2024-05-26 10:39] LABS: Alanine Aminotransferase 47 U/L (12-78); Albumin Level 3.6 g/dl (3.5-5.0); Albumin/Globulin Ratio 1.8 (1.1-1.8); Alkaline Phosphatase 50 U/L (38-126); Anion Gap 5.1 mEq/L (5-15); Aspartate Amino Transferase 72 U/L (14-36); Bilirubin,Total 0.2 mg/dl (0.2-1.3); Blood Urea Nitrogen 11 mg/dl (7-17); Calcium 8.4 mg/dl (8.4-10.2); Carbon Dioxide 32 mmol/L (22.0-30.0); Chloride 102 mmol/L (98-107); Chol/HDL Ratio 1.4 (1-3.5); Cholesterol 100 mg/dl (140-200); Estimated Glomerular Filt Rate 74 ml/min (>60); GFR (African American) 90 ML/MIN (>60); Glucose 83 mg/dl (74-100); HDL Cholesterol 69 mg/dl (40-60); Magnesium 1.7 mg/dl (1.6-2.3); Potassium 4.1 mmoL/L (3.5-5.1); Sodium 135 mmol/L (136-145); Total Protein,Serum 5.6 g/dl (6.3-8.2); Triglycerides 75 mg/dl (30-150); VLDL Cholesterol 15 mg/dL (0-40)
[2024-05-26 10:54] LABS: Direct LDL Cholesterol < 30.00 mg/dL (100-129)
[2024-05-26 10:56] LABS: 25-OH Vitamin D, Total 54.7 ng/mL (30-100)
== END 2024-05-26 23:59 | disposition home or self-care (01) ==
LOC: LAB 09:32
PROVIDERS: PCP Family Medicine; Visit Provider Family Medicine
DX: I25.10 Atherosclerotic heart disease of native coronary artery without angina pectoris (principal); E55.9 Vitamin D deficiency, unspecified
CPT/HCPCS: 36415; 80053; 80061; 82306; 83735

== ENCOUNTER 2024-09-26 08:04 | Emergency (ER) | payer OTHER, BC, SELFPAY ==
--- OUTSIDE RECORDS SUMMARY | 2024-09-26 08:09 | XMS_ITS | Clinical Summary ---
Author Organization Healthcare Address [address] [id number] Care Team Providers Care Receiving Clerk Name Role Phone Felix Ross MD Primary Care Provider [phone] Social History Tobacco Use Types Packs/Day Years Used Date Smoking Tobacco: Never Comments Unknown Sex and Gender Information Value Date Recorded Sex Assigned at Not on file Legal Sex Female 8:28 PM EDT Gender Identity Not on file Sexual Orientation Not on file Last Filed Vital Signs Vital Sign Reading Time Taken Comments Blood Pressure 124/68 05/08/2019 4:07 PM EST Pulse - - Temperature - - Respiratory Rate - - Oxygen Saturation - - Inhaled Oxygen Concentration - - Weight 86.2 kg (190 lb 0.6 oz) 05/08/2019 4:07 P M EST Height 170.2 cm (5' 7 ) 05/08/2019 4:07 PM EST Body Mass Index 29.76 05/08/2019 4:07 PM EST Plan of Treatment Health Maintenance Due Date Last Done Comments [facility]-Depression Screening 1970 [facility]-/Child/Adol SDOH Screenings 1970 [facility]- SDOH Screenings 1986 [facility]-Adult SDOH Screenings 1986 [facility]-DTaP,Tdap,and Td Vaccine s (1 - Tdap) 08/15/1987 [facility]-Hepatitis B Vaccines (1 of 3 - 19+ 3-dose series) 08/15/1987 [facility]-Pap Smear 1989 [facility]-Cervical Cancer Screening 1998 [facility]-HPV/Cotest 1998 CT Colonography 2013 Colonoscopy 2013 FIT-DNA 2013 FIT 2013 FOBT 2013 Sigmoidoscopy 2013 [facility]-Colorectal Cancer Screening 2013 [facility]-Pneumococcal Vaccine: 50 + Years (1 of 1 - PCV) 2018 [facility]-Zoster Vaccines (1 of 2) 2018 HMO-NNKPO-10 Vaccine (1 - 20 24-25 season) 2023 [facility]-Influenza Vaccine (#1) 2024 HPV Vaccines Aged Out No longer eligi ble based on patient's age to complete this topic [facility]-HIB Vaccines Aged Out No longer e ligible based on patient's age to complete this topic [facility]-Hepatitis A Vaccines Aged Out No longer eligible based on patient's age to complete this topic [facility]-IPV Vaccines Aged Out No longer e ligible based on patient's age to complete this topic [facility]-Rotavirus Vaccines Aged Out No lo nger eligible based on patient's age to complete this topic Care Teams Receiving Clerk Relationship Specialty Start Date End Date Felix Ross MD [address] [place] [id number] PCP - General 08/01/20
[2024-09-26 08:11] VITALS: BP 134/77; PULSE 62; RESP 17; O2SAT 98; BMI 24.3
--- NOTE | 2024-09-26 08:25 | XR_ITS ---
FINAL REPORT CLINICAL HISTORY: fall, bilat knee pain COMPARISON: None FINDINGS: Three views of the right knee were obtained. There is no acute fracture or dislocation. There are minimal hypertrophic changes of the medial joint margin. There is no acute soft tissue abnormality. IMPRESSION: No acute abnormality identified. Reviewed, Interpreted and Dictated by Jarrod Tinajero MD Transcribed by Carla Elizabeth Authenticated and [facility]
--- NOTE | 2024-09-26 08:25 | XR_ITS ---
FINAL REPORT CLINICAL HISTORY: fall, bilat knee pain COMPARISON: None FINDINGS: Two views of the left femur were obtained. There is no acute fracture or dislocation. The joint spaces are well preserved. There is no acute soft tissue abnormality. IMPRESSION: No acute abnormality identified. Reviewed, Interpreted and Dictated by Jarrod Tinajero MD Transcribed by Carla Elizabeth Authenticated and [facility]
--- NOTE | 2024-09-26 08:25 | XR_ITS ---
FINAL REPORT CLINICAL HISTORY: fall, bilat knee pain COMPARISON: None FINDINGS: LEFT KNEE 3 views of the left knee were obtained. There is no acute fracture or dislocation. Visualized joint spaces are normally aligned. Soft tissues are unremarkable. IMPRESSION: No acute bony abnormality. Reviewed, Interpreted and Dictated by Jarrod Tinajero MD Transcribed by Carla Elizabeth Authenticated and [facility]
--- NOTE | 2024-09-26 08:26 | HMH.EDGENADL ---
Discharge Plan Disposition Patient Disposition: Home, Self-Care Prescriptions Prescriptions: No Action ferrous sulfate [FeroSul] 325 mg (65 mg iron) tablet 325 mg PO DAILY Patient Comments: TAKE ONE TABLET BY MOUTH THREE TIMES DAILY pantoprazole 40 mg tablet,delayed release (DR/EC) 40 mg PO DAILY cholecalciferol (vitamin D3) 125 mcg (5,000 unit) capsule See Rx Instructions PO WEEKLY Rx Instructions: 50,000 units orally weekly; atorvastatin 20 mg tablet 20 mg PO DAILY aspirin 81 MG tablet,delayed release (DR/EC) 81 mg PO DAILY metoprolol succinate 25 mg tablet extended release 24 hr 12.5 mg PO DAILY Referrals Follow up/Referrals: Sedrick Patel DO [Staff Physician, Orthopedics] - See instructions Felix Ross MD [Primary Care Provider, Medical] - See instructions Activity Restrictions/Add. Instructions Additional Instructions/Restrictions: At this time it was felt you are safe to be discharged home. If new or worsening symptoms please do not hesitate to return the emergency department. Please bear weight as tolerated on both your knees and use your crutches as needed. Call and schedule appoint with Dr. Patel as soon as you are able. For pain I recommend you take 1000 mg of Tylenol every 6 hours as needed. To whom it may concern at [facility] this patient was evaluated by Dr. Marcus Gutierrez in the emergency department today and is allowed to bear weight as tolerated until she follows up with Dr. Patel. If she is unable to tolerate certain activities I recommend patient discretion as to what she can and cannot do. Clinical Impressions Clinical Impression: Bilateral knee pain Qualifiers: Chronicity: acute Qualified Code(s): M25.561 - Pain in right knee Stand Alone Forms Stand Alone Forms: Work/School Release Print Language Print Language: Mongolian Discharge ED Provider: Marcus Gutierrez General Adult HPI General Chief complaint: Fall Stated complaint: [id number]- Fall-Pain/ swelling both knees Time Seen by Provider: 09/26/24 08:13 Mode of Arrival: Ambulatory Source of Information: Patient Description of Symptoms (Recalled from ER Triage Doc. by RN): Pt reports she fell at work around 0645 this morning. Pt complains of bilateral knee pain. Pt denies hitting her head or any loss of consciousness. History of Present Illness HPI narrative: Patient is a 54-year-old female who works in [facility] presents emerged part for evaluation traumatic injury sustained in a fall. Patient tripped over her oxygen tubing prior to arrival striking both of her knees. She has had an antalgic gait initially had pain worse on her left knee than her right which is now subsiding and her pain is predominantly right-sided. No anticoagulants. No other trauma reported no other acute complaints at this time. Of note patient has lost a significant amount of weight in her lifetime and has residual tissue over the medial aspect of her right knee at baseline. Please note that above description of symptoms, in this electronic medical record under categorization of recalled from ER triage doctor by RN are reflective of an initial nursing assessment, however, is not reflective of my full history and physical exam that was personally taken and clarified. Consequentially, this preceding description of symptoms, which may include the patient's categorized chief complaint in the EMR, do not reflect my personal clinical impression, and the ultimate description of history of present illness and patient stated complaints should be deferred to this section of the note. Unless stated otherwise or congruent with this section of the note, additional signs, symptoms, or incongruence should be interpreted as inaccurate with my clinical impression. Related Data Home Medications ?Medication ?Instructions ?Recorded ?Confirmed ferrous sulfate 325 mg (65 mg 325 mg PO DAILY Supplement 05/13/21 09/26/24 iron) tablet (FeroSul) aspirin 81 mg tablet,delayed 81 mg PO DAILY prevention 06/26/21 09/26/24 release cholecalciferol (vitamin D3) 125 See Rx Instructions PO WEEKLY 05/28/22 09/26/24 mcg (5,000 unit) capsule metoprolol succinate 25 mg 12.5 mg PO DAILY Hypertension 05/30/23 09/26/24 tablet,extended release 24 hr pantoprazole 40 mg tablet,delayed 40 mg PO DAILY 05/30/23 09/26/24 release atorvastatin 20 mg tablet 20 mg PO DAILY 06/13/24 09/26/24 Allergies Allergy/AdvReac Type Severity Reaction Status Date / Time No Known Allergies Allergy Verified 09/26/24 08:16 [facility] Disclaimer: The information contained in this section may have been updated after the patient was seen, as this information can be updated by other users. Medical History Dizziness Cardiomyopathy Muscle pain Social History Smoking Status: Never smoker second hand exposure: No alcohol intake: current alcohol intake frequency: holidays/special occasions only substance use type: denies use current occupational status: employed Travel in the last 8 weeks?: None household members: spouse housing: house current occupation: Nurse current occupational exposures/hazards: No caffeine: Yes Have you lived/traveled outside [place] in past 30 days?: No Contact w/someone who lives/traveled outside [place] past 30 days?: No Exposure to someone with infectious disease in past 14 days?: No Do you have a fever (greater than 100.4 F or 38 C)?: No Have you tested positive for COVID-19?: No Exposed to someone with COVID-19 in past 14 days?: No Do you have a sore throat?: No Do you have a cough?: No Do you have any weakness?: No Do you have any diarrhea?: No Are you experiencing any unusual bleeding?: No Do you have any muscle aches/pain?: No Do you have any abdominal pain?: No Are you experiencing loss of taste or smell?: No Other Medical History Have you received the Flu Vaccine for this season: Yes Have you received the Pneumonia Vaccine: No ROS Obtained: Yes Systems reviewed as appropriate & no additional complaints except as documented Physical Exam General General appearance: alert and in no apparent distress Head Head exam: atraumatic and normocephalic Eye Eye exam: Present PERRL and EOMI ENT ENT exam: Present mucous membranes moist Neck Neck exam: Present normal inspection Chest Chest inspection: Present normal inspection and symmetric chest wall rise Respiratory Respiratory exam: Absent respiratory distress Cardiovascular Cardiovascular exam: Present regular rate and normal rhythm Abdominal Exam Abdominal exam: Present soft Extremities Exam Extremities exam: Present other (Mild tenderness over the bilateral knees bilaterally. Extensor mechanism intact bilaterally. Palpable dorsal pedal pulse. No appreciable swelling over the left knee. Redundant tissue along the medial aspect of the right knee.) Neurological Exam Neurological exam: Present alert Psychiatric Psychiatric exam: Present normal affect Skin Skin exam: Present warm and dry Medical Decision Making Medical Records Screening: Per USPSTF and CDC recommendations, given the prevalence of disease in our region, it is our hospital?s policy to screen for HIV and viral Hepatitis for all patients aged 18 and over and those with ongoing risk factors. Sg Inquiry Pt receiving controlled substance: No Vital Signs: 09/26/24 08:11 09/26/24 09:08 Temperature 97.8 F Temperature Source Oral Pulse Rate 58 L Pulse Rate [Right Brachial] 62 Respiratory Rate 17 17 Blood Pressure 122/71 Blood Pressure [Right Arm] 134/77 Blood Pressure Mean [Right Arm] 96 Blood Pressure Source [Right Arm] Automatic Cuff Blood Pressure Position [Right Arm] Sitting 02 Sat by Pulse Oximetry 98 Oxygen Delivery Method Room Air Room Air Orders (Tests/Meds): ED MEDICATIONS Discontinued Medications Generic Name Dose Route Start Last Admin Trade Name Freyovana PRN Reason Stop Dose Admin Acetaminophen 1,000 mg 09/26/24 08:25 09/26/24 08:42 Acetaminophen 500mg Tab PO 09/26/24 08:26 1,000 mg ONCE ONE Administration ORDERS Category Date Time Status Femur XR left 2 views [XR femur LT 2V] Stat Exams 09/26/24 08:25 Completed Knee XR left 3 views [XR knee LT 3V] Stat Exams 09/26/24 08:25 Completed Knee XR right 3 views [XR knee RT 3V] Stat Exams 09/26/24 08:25 Completed Medical Decision Narrative: In summary patient is a 54-year-old female past medical history described above presents emergency department for evaluation of traumatic injury sustained in a fall. Patient is hemodynamically stable nontoxic-appearing upon arrival, afebrile. Patient history and physical exam trauma survey will be conducted with plain films of the bilateral knees and left femur. CTA for vascular pathology was considered but based on history no concern for posterior knee dislocation will be deferred. Initial inventions include Tylenol. Ibuprofen will be deferred given history of GI bleed. Plain films informally interpreted by me no acute large displaced fracture. Formal read shows no acute abnormality. Given this patient is appropriate for outpatient management at this time will be weightbearing as tolerated. Critical Care Critical Care Time Critical Care Time: No
[2024-09-26] MEDS: ACETAMINOPHEN 500MG TAB 1000 MG PO (08:42)
[2024-09-26 09:08] VITALS: BP 122/71; PULSE 58; RESP 17; TEMP 36.6; O2SAT 98
== END 2024-09-26 09:11 | disposition home or self-care (01) ==
PROVIDERS: Emergency Provider Emergency Medicine; PCP Family Medicine
DX: M25.561 Pain in right knee (principal); W01.10XA Fall on same level from slipping, tripping and stumbling with subsequent striking against unspecified object, initial encounter
CPT/HCPCS: 73552; 73562; 99284